=== PATIENT | female | born 2000 | race Caucasian/White ===

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

== ENCOUNTER 2021-08-31 16:01 | Outpatient (CLI) | payer OTHER, MEDICAID, SELFPAY ==
[2021-08-31 15:50] LABS: Protein, Urine (Random) 17.5 mg/dL (<11.9); Protein:Creat Ratio 72 mg/g CRE (0-200)
[2021-08-31 16:03] LABS: Amphetamine Urine VISTA NEGATIVE (<1000 ng/mL); Barbiturate Urine VISTA NEGATIVE (< 200 ng/mL); Benzodiazepine Urine VISTA NEGATIVE (< 200 ng/mL); Cocaine Urine VISTA NEGATIVE (< 300 ng/mL); Ecstacy Urine VISTA NEGATIVE (< 500 ng/mL); Methadone Urine VISTA NEGATIVE (< 300 ng/mL); PCP Urine VISTA NEGATIVE (< 25 ng/mL); THC Urine VISTA NEGATIVE (< 50 ng/mL); Vista UDS pH Range 6
[2021-09-03 09:08] LABS: Chlamydia By Nucleic Acid AMP Negative (Negative)
[2021-09-03 10:21] LABS: Gonococcus By Nucleic Acid AMP Negative (Negative)
== END 2021-08-31 23:59 | disposition home or self-care (01) ==
LOC: LABSPEC 16:03
PROVIDERS: PCP Family Medicine; Visit Provider Obstetrics & Gynecology
DX: O09.90 Supervision of high risk pregnancy, unspecified, unspecified trimester (principal); Z87.59 Personal history of other complications of pregnancy, childbirth and the puerperium
CPT/HCPCS: 80307; 82570; 84156; 87086; 87088; 87491; 87591

== ENCOUNTER → 2021-09-29 | Outpatient (CLI) | payer OTHER, MEDICAID, SELFPAY ==
[2021-09-29 11:30] LABS: Absolute Lymphocyte Count 1.61 X10^3/uL (0.83-4.51); Absolute Neutrophil Count 5.1 X10^3/uL (2.0-7.7); Basophil# 0.02 X10^3/uL; Basophil% 0.3 % (0-1); Eosinophil# 0.13 X10^3/uL; Eosinophils% 1.8 % (0-5); Hematocrit 37.5 % (37-47); Hemoglobin 12.6 g/dL (12.0-15.0); Lymphocyte # 1.61 X10^3/ul (0.83-4.51); Lymphocyte % 21.9 % (19-41); Mean Corp Hgb Conc 33.6 g/dL (32-36); Mean Corpuscular Hgb 27.4 pg (27.0-32.0); Mean Corpuscular Volume 81.5 fL (81-99); Mean Platelet Vol. 10.1 fl (6.2-12.0); Monocyte# 0.49 X10^3/uL; Monocyte% 6.7 % (0-10); NRBC Flagged by Analyzer 0 % (0-5); Neutrophil # 5.07 X10^3/uL (2.7-7.7); Neutrophil % 68.9 % (47-70); Platelet Count 265 K/mm3 (150-450); RBC Distribution Width CV 13.8 % (11.6-14.6); RBC Distribution Width SD 40.4 fl (35.1-43.9); White Blood Count 7.4 K/mm3 (4.4-11.0)
[2021-09-29 11:37] LABS: NATERA MAILED SPECIMEN
[2021-09-29 12:05] LABS: ALB/GLOB Ratio 0.8 RATIO (0.9-2.4); AST(SGOT) 10 U/L (15-37); Alanine Aminotransfer ALT/SGPT 16 U/L (13-56); Albumin, Serum 2.9 g/dL (3.2-5.0); Alkaline Phosphatase 78 U/L (45-117); Anion Gap 6 (5-15); BUN 7 mg/dL (7-18); BUN/Creat Ratio 11.8 RATIO (10-20); Calcium,Total 8.9 mg/dL (8.5-10.1); Chloride 107 mmol/L (98-107); Creatinine, Serum 0.59 mg/dL (0.55-1.02); EST Glomerular Filtration Rate 137 mL/min (>60); Est Glom Filt Rate - Afr Amer 166 mL/min (>60); Globulin 3.8 g/dL (2.2-4.2); Glucose 140 mg/dL (74-106); Glucose Challenge Gest 1H 50g 140 mg/dL (70-140); Potassium 3.6 mmol/L (3.5-5.1); Protein, Total 6.7 g/dL (6.4-8.2); Sodium Level 136 mmol/L (136-145)
[2021-09-29 12:37] LABS: HIV - WCH Non-Reactive (Nonreactive); Hepatitis B Surface Antigen Non-Reactive (Nonreactive); Hepatitis C Antibody Non-Reactive (Nonreactive); Rubella IgG Reactive (Nonreactive); Syphilis Antibodies Non-reactive
== END | disposition home or self-care (01) ==
LOC: PAVLAB 10:33
PROVIDERS: Obstetrics & Gynecology; PCP Physician Assistant; Referring Provider Obstetrics & Gynecology; Visit Provider Obstetrics & Gynecology
DX: Z34.81 Encounter for supervision of other normal pregnancy, first trimester (principal)
CPT/HCPCS: 36415; 80053; 82950; 85025; 86703; 86762; 86780; 86803; 86850; 86900; 86901; 87340

== ENCOUNTER → 2021-10-03 | Outpatient (CLI) | payer OTHER, MEDICAID, SELFPAY ==
[2021-10-03 10:43] LABS: Glucose GTT-Gestation. Fasting 85 mg/dL (<105)
[2021-10-03 11:33] LABS: Glucose GTT-Gestational 1 Hr 131 mg/dL (<190)
[2021-10-03 12:23] LABS: Glucose GTT-Gestational 2 Hr 148 mg/dL (<165)
[2021-10-03 13:31] LABS: Glucose GTT-Gestational 3 Hr 84 L (<145)
== END | disposition home or self-care (01) ==
LOC: LAB 09:49
PROVIDERS: PCP Physician Assistant; Visit Provider Obstetrics & Gynecology
DX: Z13.1 Encounter for screening for diabetes mellitus (principal)
CPT/HCPCS: 36415; 82951; 82952

== ENCOUNTER → 2022-01-16 | Outpatient (CLI) | payer OTHER, MEDICAID, SELFPAY ==
[2022-01-16 14:04] LABS: Absolute Lymphocyte Count 2.21 X10^3/uL (0.83-4.51); Absolute Neutrophil Count 7.3 X10^3/uL (2.0-7.7); Basophil# 0.03 X10^3/uL; Basophil% 0.3 % (0-1); Eosinophil# 0.16 X10^3/uL; Eosinophils% 1.5 % (0-5); Hematocrit 31.6 % (37-47); Hemoglobin 10.4 g/dL (12.0-15.0); Lymphocyte # 2.21 X10^3/ul (0.83-4.51); Lymphocyte % 21.1 % (19-41); Mean Corp Hgb Conc 32.9 g/dL (32-36); Mean Corpuscular Volume 85.2 fL (81-99); Mean Platelet Vol. 9.8 fl (6.2-12.0); Monocyte# 0.64 X10^3/uL; Monocyte% 6.1 % (0-10); NRBC Flagged by Analyzer 0 % (0-5); Neutrophil # 7.31 X10^3/uL (2.7-7.7); Neutrophil % 69.8 % (47-70); Platelet Count 249 K/mm3 (150-450); RBC Distribution Width CV 13.3 % (11.6-14.6); RBC Distribution Width SD 40.7 fl (35.1-43.9); Red Blood Count 3.71 M/mm3 (4.2-5.4); White Blood Count 10.5 K/mm3 (4.4-11.0)
[2022-01-16 14:27] LABS: Glucose Challenge Gest 1H 50g 117 mg/dL (70-140)
== END | disposition home or self-care (01) ==
PROVIDERS: PCP Physician Assistant; Referring Provider Nurse Practitioner Women's Health; Visit Provider Nurse Practitioner Women's Health
DX: Z34.90 Encounter for supervision of normal pregnancy, unspecified, unspecified trimester (principal)
CPT/HCPCS: 36415; 82950; 85025

== ENCOUNTER → 2022-03-23 | Outpatient (CLI) | payer OTHER, MEDICAID, SELFPAY ==
--- NOTE | 2022-03-23 13:29 | US_ITS ---
STUDY: SECOND AND THIRD TRIMESTER OBSTETRICAL ULTRASOUND - LIMITED REASON FOR EXAM: Female, 21 years old routine survey LMP: 07/10/21 PRIOR ULTRASOUND: None. TECHNIQUE: Transabdominal TECHNICAL QUALITY: Adequate. FINDINGS: There is a single intrauterine fetus. The fetus is in a cephalic presentation. There is demonstrated cardiac activity with a heart rate of between 122 and 171 bpm. There is a normal amniotic fluid volume. The largest amniotic fluid pocket measures 4.63 cm. The amniotic fluid index (LILIAN) is 10.32 cm. The placenta is fundal in location. There are Grade 1 placental changes. The cervix was not visualized BIOMETRY: BPD: 8.77 cm: 35 weeks, 3 days HC: 32.45 cm: 36 weeks, 5 days AC: 33.24 cm: 37 weeks, 1 days FL: 6.93 cm: 35 weeks, 4 days Age by LMP: 36 weeks, 4 days. BIRD by LMP: 04/16/2022. age by current US: 36 weeks, 4 days. BIRD by current US: 04/16/2022. Estimated weight: 2967 grams, +/- 445 grams, 53 percentile. US/OB Limited With Biometrics IMPRESSION: Single live intrauterine at 36 weeks, 4 days by current ultrasound with BIRD of 04/16/2022. Heart rate of measured between 122 and 171. No suspicious sonographic findings. Electronically Signed: Ezekiel Westfall MD at 15:12 EDT ,
[2022-03-23 15:37] LABS: Absolute Lymphocyte Count 2.04 X10^3/uL (0.83-4.51); Absolute Neutrophil Count 7.9 X10^3/uL (2.0-7.7); Basophil# 0.03 X10^3/uL; Basophil% 0.3 % (0-1); Eosinophil# 0.14 X10^3/uL; Eosinophils% 1.3 % (0-5); Hematocrit 31.4 % (37-47); Hemoglobin 9.8 g/dL (12.0-15.0); Lymphocyte # 2.04 X10^3/ul (0.83-4.51); Lymphocyte % 18.6 % (19-41); Mean Corp Hgb Conc 31.2 g/dL (32-36); Mean Corpuscular Volume 80.1 fL (81-99); Mean Platelet Vol. 10.2 fl (6.2-12.0); Monocyte# 0.82 X10^3/uL; Monocyte% 7.5 % (0-10); NRBC Flagged by Analyzer 0.2 % (0-5); Neutrophil # 7.85 X10^3/uL (2.7-7.7); Neutrophil % 71.7 % (47-70); Platelet Count 263 K/mm3 (150-450); RBC Distribution Width SD 43.1 fl (35.1-43.9); Red Blood Count 3.92 M/mm3 (4.2-5.4)
[2022-03-23 15:57] LABS: Protein, Urine (Random) 17.5 mg/dL (<11.9); Protein:Creat Ratio 98 mg/g CRE (0-200)
[2022-03-23 16:02] LABS: ALB/GLOB Ratio 0.6 RATIO (0.9-2.4); AST(SGOT) 16 U/L (15-37); Alanine Aminotransfer ALT/SGPT 18 U/L (13-56); Albumin, Serum 2.4 g/dL (3.2-5.0); Alkaline Phosphatase 137 U/L (45-117); Anion Gap 7 (5-15); BUN 11 mg/dL (7-18); BUN/Creat Ratio 15.9 RATIO (10-20); Calcium,Total 9.2 mg/dL (8.5-10.1); Chloride 109 mmol/L (98-107); Creatinine, Serum 0.69 mg/dL (0.55-1.02); EST Glomerular Filtration Rate 114 mL/min (>60); Est Glom Filt Rate - Afr Amer 138 mL/min (>60); Globulin 3.9 g/dL (2.2-4.2); Glucose 102 mg/dL (74-106); Potassium 3.8 mmol/L (3.5-5.1); Protein, Total 6.3 g/dL (6.4-8.2); Sodium Level 140 mmol/L (136-145)
== END | disposition home or self-care (01) ==
PROVIDERS: Registered Nurse; PCP Physician Assistant; Referring Provider Obstetrics & Gynecology; Visit Provider Obstetrics & Gynecology
DX: Z34.93 Encounter for supervision of normal pregnancy, unspecified, third trimester (principal); Z3A.36 36 weeks gestation of pregnancy
CPT/HCPCS: 36415; 76816; 80053; 82570; 84156; 85025; 87077; 87081; 87186

== ENCOUNTER 2022-03-27 09:39 | Inpatient (IN) | payer OTHER, MEDICAID, SELFPAY ==
[2022-03-27] VITALS (66 sets, daily range): BP systolic 86–147; BP diastolic 50–90; PULSE 63–130; TEMP 36–37.3; O2SAT 89–100; BMI 43.5
--- NOTE | 2022-03-27 09:53 | HP.PCM.OB_ITS ---
HPI - General General Date of Admission: 03/27/22 HPI Narrative CARIE GARDNER, is a 21 y/o @ 37 weeks 1 day who presents to L&D per Jaz Marcano for elevated blood pressures and visual changes. She was initially set up for IOL tomorrow for PIH. Her GBS is positive and cx is 2/60/-2 (per report from [employer]) She currently denies headache, abdominal pain, nausea, vomiting. Maternal Data Information BIRD Calculator Estimated Delivery Date Method Current WG Current Estimate 04/16/22 Ultrasound #1 37w 1d Other Estimates 04/05/22 LMP (Uncertain) 38w 5d PFSH PFSH Medical History Anxiety and depression Vaginal delivery Home Medications prenat.vits,shelia,xas-nioc-bfbcs 1 tab PO DAILY 08/16/21 [History Last Taken 03/25/22] ferrous sulfate 325 mg (65 mg iron) tablet 325 mg PO DAILY anemia 03/27/22 [History Last Taken 03/25/22] Allergy/AdvReac Type Severity Reaction Status Date / Time No Known Allergies Allergy Verified 03/27/22 08:58 Surgical History No significant past surgical history Social History adopted: No household members: significant other and children housing: house number of children: 1 current occupational status: employed and unemployed current occupation: [employer] pets and animals: Yes pets and animals: dog(s) Smoking Status: Never smoker second hand exposure: No alcohol intake: never substance use type: does not use seatbelt use: always do you feel safe at home: Yes History 2 Elective abortions Hx Para 1 Spontaneous abortions Hx # Term Pregnancies Ectopic pregnancies Hx # Pregnancies Multiple births # of living children 1 Past Pregnancies Del. Date Name GA/Weeks Outcome Route Bth Weight Gen Labor Lgth Anesthesia Del Locatn Provider FOB 12/17/20 Mathew Moon 38 live - full term 7# 8o z Male 12 hour epidural [facility] SM PJ Delivery Date: 12/17/20 Last Updated by: Jaz Marcano [employer], [employer]-C IOL for HTN Visit Details Expected Delivery Route/Plan Labor Preferences- CB/BF classes: no labor support person: MEIR labor intervention preferences: [] pain management options preferred: limited intervention, epidural ok cut cord/dad catch: yes : no PP control planned: discussed discussed possible routes of delivery and associated risks: [] special requests: [] Plans Covid status: unvaccinated Flu vaccine:unvaccinated Tdap vaccine: decline Rhogam: na LARC form signed: yes movement and labor precautions reviewed. Problem list reviewed and updated with the most current plan of care details and appropriate orders placed. Relevant counseling for the gestational age provided. Continue routine care and follow up unless otherwise noted in visit notes/problem list details OB Flowsheet Initial Weight: 226 lb Date -?-?-?-?-?-?-?-?-?-?-?-?- EGA Weight BP Urine Prot -?-?-?-?-?-?-?-?-?-?-?-?- Glucose FHR FuHt Pres Dilation -?-?-?-?-?-?-?-?-?-?-?-?- Effaced St Visit Note 09/29/21 -?-?-?-?-?-?-?-?-?--?-?-?- 11w 4d 226 lb (+0 oz) 138/86 -?-?-?-?-?-?-?-?-?-?-?-?- 155 -?-?-?-?-?-?-?-?-?-?-?-?- SM- no vb some c ramping 10/27/21 -?-?-?-?-?-?-?-?-?-?-?-?- 15w 4d 226 lb 2 oz (+2 oz) 130/78 Negative -?-?-?-?-?-?-?-?-?-?-?-?- Negative 140 -?-?-?-?-?-?-?-?-?-?-?-?- JV- some mild cr amping and carpal tunnel pain. No vaginal bleeding. anatomy ultrasound ordered. 11/24/21 -?-?-?-?-?-?-?-?-?-?-?-?- 19w 4d 228 lb 8 oz (+2 lb 8 oz) 126/86 Negative -?-?-?-?-?-?-?-?-?-?-?-?- Negative 145 -?-?-?-?-?-?-?-?-?-?-?-?- JV- no cramping or spotting needs additional views of ultrasound. + FM. 12/22/21 -?-?-?-?-?-?-?-?-?-?-?-?- 23w 4d 223 lb (-3 lb) 130/83 Negative -?-?-?-?-?-?-?-?-?-?-?-?- Negative 140 23 -?-?-?-?-?-?-?-?-?-?-?-?- SM- no vb lof go od fm no regular ctx echo for fu heart views due to incomplete anatomy 01/16/22 -?-?-?-?-?-?-?-?-?-?-?-?- 27w 1d 240 lb 4 oz (+14 lb 4 oz) 116/62 Negative -?-?-?-?-?-?-?-?-?-?-?-?- Negative 144 28 -?-?-?-?-?-?-?-?-?-?-?-?- MH-No VB, LOF. G ood fm. 28 wk labs, [facility]. Consider tdap next visit 02/01/22 -?-?-?-?-?-?-?-?-?-?-?-?- 29w 3d 239 lb (+13 lb) 128/76 Negative -?-?-?-?-?-?-?-?-?-?-?-?- Negative 145 30 -?-?-?-?-?-?-?-?-?-?-?-?- SM- no vb lof go od f irregular ctx 02/16/22 -?-?-?-?-?-?-?-?-?-?-?-?- 31w 4d 242 lb 4 oz (+16 lb 4 oz) 129/78 Negative -?-?-?-?-?-?-?-?-?-?-?-?- 100 g/dL 146 33 -?-?-?-?-?-?-?-?-?-?-?-?- JV- no lof, vagi nal bleeding, or dec fm. no complaints. declines tdap today. plans tog get next visit. info on flu shot given. 02/27/22 -?-?-?-?-?-?-?-?-?-?-?-?- 33w 1d 244 lb 4 oz (+18 lb 4 oz) 131/79 Negative -?-?-?-?-?-?-?-?-?-?-?-?- Negative 125 35 -?-?-?--?-?-?-?-?-?-?-?-?- SM- no vb lof go od fm no reuglar ctx 03/16/22 -?-?-?-?-?-?-?-?-?-?-?-?- 35w 4d 245 lb (+19 lb) 131/83 -?-?--?-?-?-?-?-?-?-?-?-?- 135 38 -?-?-?-?-?-?-?-?-?-?-?-?- SM- no vb lof go od fm no regular ctx. FH high ordered growth us 03/23/22 -?-?-?-?-?-?-?-?-?-?-?-?- 36w 4d 248 lb 8 oz (+22 lb 8 oz) 142/84 Negative -?-?-?-?-?-?-?-?-?-?-?-?- Negative 140 39 Cephalic -?-?-?-?-?-?-?-?-?-?-?-?- LC-GBS collected . elevated BP, getting PIH labs stat. will return for NST. NST on saturday with IOL at 37 weeks. d/w Dr. Romero who agrees with POC. 03/26/22 -?-?-?-?--?-?-?-?-?-?-?-?- 37w 0d 247 lb (+21 lb) 133/81 Negative -?-?-?-?-?-?-?-?-?-?-?-?- Negative 140 -?-?-?-?-?-?-?-?-?-?-?-?- MH-NST only reac tive. 03/27/22 -?-?-?-?-?-?-?-?-?-?-?-?- 37w 1d 246 lb 6 oz (+20 lb 6 oz) 140/90 Trace -?-?-?-?-?-?-?-?-?-?-?-?- Negative 141 Cephalic 2 -?-?-?-?-?-?-?-?-?-?-?-?- 60 -2 -had hea dache last night. Seeing sparkles off and on today. No reg CTX, VB, LOF. Good Fm. To WP for eval. ROS Constitutional Constitutional: Denies change in weight, fatigue, fever(s), headache(s), poor appetite or weakness Eyes Eyes: Denies blurry vision, change in vision, seeing flashes or spots in vision ENT HEENT: Denies dizziness, headache(s), loss taste/smell or sore throat Cardiovascular Cardiovascular: Denies chest pain, dizziness, dyspnea, irregular heart rhythm, leg edema, palpitations, rapid heart rate or vomiting Respiratory/Chest Respiratory/Chest: Denies chest tightness, cough, dyspnea or breast pain Gastrointestinal Gastrointestinal: Denies abdominal pain, anorexia, constipation, cramping, diarrhea, hemorrhoids, vomiting or weight changes Genitourinary Genitourinary: Denies dysuria, flank pain, genital lesions, genital pain, urinary frequency or urinary urgency Musculoskeletal Musculoskeletal: Denies back pain, difficulty walking, joint pain, limited range of motion, muscle cramps or numbness Integumentary Integumentary: Denies lesions or unusual bruising Neurologic Neurologic: Denies abnormal movements, abnormal speech, dizziness, numbness, sei zure-like activity or syncope Psychiatric Psychiatric: Denies anxiety, behavioral changes, change in appetite, change in libido, cognitive impairment, confusion, depression, difficulty concentrating, hallucinations or suicidal thoughts Endocrine Endocrinology: Denies excessive sweating, polydipsia or polyuria Hematologic/Lymphatic Hematologic/Lymphatic: Denies easy bleeding, easy bruising or lymphadenopathy Allergic/Immunologic Allergic/Immunologic: Denies itchy eyes, lip swelling, seasonal rhinorrhea, rhinitis, throat swelling, tongue swelling, eczemia, wheezing or asthma Vital Signs Vital Signs Vital Signs: 03/27/22 09:45 03/27/22 09:45 03/27/22 09:46 Temperature Temperature Source Temporal Pulse Rate 103 H Blood Pressure 138/77 H BP Systolic 138 BP Diastolic 77 Pulse Ox 03/27/22 09:46 03/27/22 09:45 Temperature 98.3 F Temperature Source Pulse Rate Blood Pressure BP Systolic BP Diastolic Pulse Ox 97 Physical Exam Const alert, oriented x3, no apparent distress and healthy appearing General Appearance: cooperative; Negative for anxious HEENT normocephalic Face and Sinus: normal facial exam Eyes EOMs intact bilaterally and no scleral icterus General Eye: normal appearance of both eyes Neck full ROM and supple Lymph Lymphatic: no lymphadenopathy noted Chest Chest: abnormal inspection of the chest Resp normal respiratory effort Effort and Inspection: able to speak in complete sentences Cardio regular rate GI soft to palpation and non-tender Inspection: gravid Palpation: soft; Negative for tender external exam normal Back/Spine no CVA tenderness Extremity normal to inspection, full ROM and no clubbing, cyanosis or edema General Extremity: Negative for calf tenderness or edema Skin Lesions: no lesions Rashes: no rashes Psych mental status grossly normal Labs Labs Labs: Blood Type O POSITIVE Antibody Screen NEGATIVE Hct 31.4 % (37-47) L Hgb 9.8 g/dL (12.0-15.0) L Obstetrics US Syphilis Total Ab Non-reactive Rubella IgG Antibody Reactive (Nonreactive) Hep Bs Antigen Non-Reactive (Nonreactive) Chlamydia DNA (LIONEL) Negative (Negative) Neisseria gonorrhoeae DNA (LIONEL) Negative (Negative) HIV 1&2 Antibody Non-Reactive (Nonreactive) Glucose 1 Hr 50 gm 117 mg/dL (70-140) Miscellaneous Test Assessment & Plan (1) Gestational hypertension: COMMENT: with signs of pre-e /severe features PLAN: Patient presents IOL, plan management for with cytote first, then pitocin/AROM. Pain management: plans epidural. GBS positive- will start pcn now to anticipate early Amniotomy due to pitocin shortage. Management of any complications: PIH - plan to check pih labs now including pr:cr ratio I have reviewed the PFSH and made any clinically relevant updates. (2) Uterine size-date discrepancy, third trimester: COMMENT: growth us, 03/23/22 nl growth US 53%, 2967gms (3) Anemia affecting : COMMENT: add Fe supplement daily (4) Abnormal glucose affecting : COMMENT: failed 1 hr gct normal 3 hr gtt (5) Obesity affecting : COMMENT: 1 tm gct. healthy weight gain encountered. (6) Short interval between pregnancies affecting , antepartum: COMMENT: Ghassan Carmona December 2020 (7) : QUALIFIERS: Weeks of gestation: 37 weeks Qualified Code(s): Z3A.37 - 37 weeks gestation of COMMENT: declined ntd and carrier screen.anatomy nl, repeat heart views in 2 wks, 01/30 nl echo, genetics LR girl! (8) Supervision of high risk , antepartum: COMMENT: PRR BIRD 04/16/22 girl PC: Mathew. BF:PJ (9) History of gestational hypertension: COMMENT: 1 . Get pre E labs with NOB labs (10) Anxiety and depression: COMMENT: tx in the past with medication and counseling; no meds; stable
--- NOTE | 2022-03-27 10:04 | NURSING ---
Patient declined rapid covid test.
[2022-03-27 10:25] LABS: Absolute Lymphocyte Count 1.91 X10^3/uL (0.83-4.51); Absolute Neutrophil Count 6.9 X10^3/uL (2.0-7.7); Basophil# 0.02 X10^3/uL; Basophil% 0.2 % (0-1); Eosinophil# 0.04 X10^3/uL; Eosinophils% 0.4 % (0-5); Hematocrit 32.8 % (37-47); Hemoglobin 10.5 g/dL (12.0-15.0); Lymphocyte # 1.91 X10^3/ul (0.83-4.51); Mean Corpuscular Hgb 25.5 pg (27.0-32.0); Mean Corpuscular Volume 79.8 fL (81-99); Mean Platelet Vol. 10.1 fl (6.2-12.0); Monocyte% 6.3 % (0-10); NRBC Flagged by Analyzer 0 % (0-5); Neutrophil # 6.94 X10^3/uL (2.7-7.7); Neutrophil % 72.5 % (47-70); Platelet Count 246 K/mm3 (150-450); RBC Distribution Width CV 14.9 % (11.6-14.6); RBC Distribution Width SD 42.9 fl (35.1-43.9); Red Blood Count 4.11 M/mm3 (4.2-5.4); White Blood Count 9.6 K/mm3 (4.4-11.0)
[2022-03-27] MEDS: miSOPROStol 50 MCG TABLET PO (10:34)
[2022-03-27 10:43] LABS: ALB/GLOB Ratio 0.6 RATIO (0.9-2.4); AST(SGOT) 16 U/L (15-37); Alanine Aminotransfer ALT/SGPT 19 U/L (13-56); Albumin, Serum 2.6 g/dL (3.2-5.0); Alkaline Phosphatase 136 U/L (45-117); Anion Gap 7 (5-15); BUN 6 mg/dL (7-18); BUN/Creat Ratio 11.2 RATIO (10-20); Calcium,Total 9.2 mg/dL (8.5-10.1); Chloride 108 mmol/L (98-107); Creatinine, Serum 0.54 mg/dL (0.55-1.02); EST Glomerular Filtration Rate 153 mL/min (>60); Est Glom Filt Rate - Afr Amer 185 mL/min (>60); Estimated Creatinine Clearance 137.47 ml/min; Glucose 83 mg/dL (74-106); Potassium 3.8 mmol/L (3.5-5.1); Protein, Total 6.6 g/dL (6.4-8.2); Sodium Level 139 mmol/L (136-145); Uric Acid 3.7 mg/dL (2.6-6.0)
[2022-03-27 11:29] LABS: Protein, Urine (Random) 16.6 mg/dL (<11.9); Protein:Creat Ratio 194 mg/g CRE (0-200)
[2022-03-27] MEDS: Ondansetron 4 MG/2 ML Vial IV (12:22)
[2022-03-27] MEDS: Lactated Ringers 1,000 ML 50 ML IV (15:30)
[2022-03-27] MEDS: LACTATED RINGERS 500 ML 999 ML IV ×2 (16:15→17:13)
[2022-03-27] MEDS: Penicillin G 3,000,000 Units 50 ML 100 UNITS IV (16:47)
[2022-03-27] MEDS: fentaNYL-bupivacaine (epidural) 100 ML BAG EPIDURAL (17:03)
[2022-03-27] MEDS: miSOPROStol 200 MCG Tablet 1000 MCG RC (17:48)
[2022-03-27] MEDS: Oxytocin 10 UNITS/ML Vial IM (17:50)
--- NOTE | 2022-03-27 18:00 | OP.PCM_ITS ---
Assessment & Plan (1) Gestational hypertension: COMMENT: with signs of pre-e /severe features (2) Uterine size-date discrepancy, third trimester: COMMENT: growth us, 03/23/22 nl growth US 53%, 2967gms (3) Anemia affecting : COMMENT: add Fe supplement daily (4) Abnormal glucose affecting : COMMENT: failed 1 hr gct normal 3 hr gtt (5) Obesity affecting : COMMENT: 1 tm gct. healthy weight gain encountered. (6) Short interval between pregnancies affecting , antepartum: COMMENT: Ghassan Carmona December 2020 (7) : QUALIFIERS: Weeks of gestation: 37 weeks Qualified Code(s): Z3A.37 - 37 weeks gestation of COMMENT: declined ntd and carrier screen.anatomy nl, repeat heart views in 2 wks, 01/30 nl echo, genetics LR girl! (8) Supervision of high risk , antepartum: COMMENT: PRR BIRD 04/16/22 girl PC: Mathew. BF:PJ (9) History of gestational hypertension: COMMENT: 1 . Get pre E labs with NOB labs (10) Anxiety and depression: COMMENT: tx in the past with medication and counseling; no meds; stable Maternal Data Information BIRD Calculator Estimated Delivery Date Method Current WG Current Estimate 04/16/22 Ultrasound #1 37w 1d Other Estimates 04/05/22 LMP (Uncertain) 38w 5d Vaginal Delivery Maternal Presentation Maternal Presentation: Medically Indicated Induction Type of Induction: Cervidil Operative Information Date of Procedure: 03/27/22 Pre-Operative Diagnosis: 37 weeks 1 day, Pre-eclampsia with severe features Post-Operative Diagnosis: 37 weeks 1 day, Pre-eclampsia with severe features Anesthesiologist: Amna Rojas Estimated Blood Loss: 200cc Findings Description of Procedure: Patient began pushing and delivered the head in the [SHAWN] presentation. The head was delivered atraumatically [and a loose nuchal cord ?1 was identified and easily reduced over the 's head]. The anterior and posterior shoulders delivered without complication followed by the rest of the infant and the was placed on the maternal abdomen. Delayed cord clamping was employed for approximately 60 seconds. Cord was clamped and cut and gentle traction was applied to the cord and the placenta delivered spontaneously immediately following it was noted to be intact with three-vessel cord. The perineum and vagina were inspected and [noted to have no laceration]. EBL was [100 cc]. Patient and infant tolerated delivery well. Presentation: Vertex Amniotic Membrane Rupture Type: Artificial Time of Membrane Rupture: 12:30 pm Amniotic Fluid Description: Clear Placental Delivery Description: Spontaneous Placenta Disposition: [facility] Cord Vessel Description: 3 Vessels Cord Entanglement: None A Gender: Female (1 minute): 8 (5 minute): 9 Delayed Cord Clamping: Yes Post Vaginal Delivery Medications Given After Delivery: - (IM pitocin and rectal cytotec ) Episiotomy Description: None Laceration: None Complication Complications: None Multi Select Codes Urinary/Genital Urinary/Genital CPT Codes: 00637 Vaginal Delivery [facility]
--- NOTE | 2022-03-27 18:04 | DCINST_ITS ---
Discharge Instructions Diet Discharge Diet: No restrictions Activity Discharge Activity: Return to Normal Activity, May Not Drive (while taking narcotic pain medications.) and May Shower May resume sexual activity in: 4-6 weeks Dressing / Incision Call your doctor if your incision/area has: Continuous Slow Oozing, Sudden Increased Bleeding, Increased Pain/ Swelling, Increased Redness and Foul Smelling Discharge Follow Up Care Please Follow Up With: Dianne Benavidez, DO When: Call [phone] to make an appointment with your doctor in 6 weeks. If you had elevated blood pressure or 4th degree laceration, you will need to be seen in 2 weeks. Test Results: Test results from this visit will be discussed in further detail at your follow- up appointment, if applicable. Discharge Plan Admission Admit Date/Time: 03/27/22 09:39 Attending Provider: Dianne Benavidez Primary Care Provider: Bre Maldonado Discharge Orders/Prescriptions Prescriptions: No Action prenat.vits,shelia,[id number] Tablet 1 tab PO DAILY ferrous sulfate 325 mg (65 mg iron) Tablet 325 mg PO DAILY Referrals / Follow Up: Bre Maldonado PA [Primary Care Provider] -
[2022-03-27] MEDS: Ibuprofen 600 MG Tablet PO (22:09)
[2022-03-28 00:10] VITALS: BP 134/63; PULSE 98; RESP 16; TEMP 37.3
[2022-03-28] MEDS: Acetaminophen 500 MG Tablet 1000 MG PO (00:28)
[2022-03-28 04:00] VITALS: BP 111/78; PULSE 94; RESP 16; TEMP 36.6
[2022-03-28 08:00] VITALS: BP 125/81; PULSE 84; RESP 18; TEMP 36.5; O2SAT 98
[2022-03-28 11:33] VITALS: BP 118/69; PULSE 83; RESP 18; TEMP 36.3; O2SAT 97
--- NOTE | 2022-03-28 12:56 | PCM.PN.OB ---
Subjective Subjective Patient doing well without complaints. Tolerating PO. Ambulating and voiding without difficulty. Feeding well. Denies chest pain, shortness of breath, calf pain/swelling, fevers, chills, lightheadedness, headaches, blurred vision/visual changes Objective Data Objective Data Vital Signs: Vital Signs Temp Pulse Resp BP Pulse Ox O2 Del Method 97.4 F L 83 18 118/69 97 Room Air 03/28/22 11:33 03/28/22 11:33 03/28/22 11:33 03/28/22 11:33 03/28/22 11:33 03/28/22 11:33 Oxygen Delivery Method Room Air Weight: 246 lb Body Mass Index (BMI) 43.5 Intake & Output: Intake and Output for Last 24 Hours 03/26/22 03/27/22 03/28/22 23:59 23:59 23:59 Intake Total 1655.00 / 1655.00 Output Total 1100 / 1100 Balance 555.00 / 555.00 Lab / Micro Data Attestation: I reviewed the patient's lab results. Result Diagrams: 03/27/22 10:10 03/27/22 10:10 ROS Constitutional Constitutional: Denies change in weight, fatigue, fever(s), headache(s), poor appetite or weakness Eyes Eyes: Denies blurry vision, change in vision, seeing flashes or spots in vision ENT HEENT: Denies dizziness, headache(s), loss taste/smell or sore throat Cardiovascular Cardiovascular: Denies chest pain, dizziness, dyspnea, irregular heart rhythm, leg edema, palpitations, rapid heart rate or vomiting Respiratory/Chest Respiratory/Chest: Denies chest tightness, cough, dyspnea or breast pain Gastrointestinal Gastrointestinal: Denies abdominal pain, anorexia, constipation, cramping, diarrhea, hemorrhoids, vomiting or weight changes Genitourinary Genitourinary: Denies dysuria, flank pain, genital lesions, genital pain, urinary frequency or urinary urgency Musculoskeletal Musculoskeletal: Denies back pain, difficulty walking, joint pain, limited range of motion, muscle cramps or numbness Integumentary Integumentary: Denies lesions or unusual bruising Neurologic Neurologic: Denies abnormal movements, abnormal speech, dizziness, numbness, seizure-like activity or syncope Psychiatric Psychiatric: Denies anxiety, behavioral changes, change in appetite, change in libido, cognitive impairment, confusion, depression, difficulty concentrating, hallucinations or suicidal thoughts Endocrine Endocrinology: Denies excessive sweating, polydipsia or polyuria Hematologic/Lymphatic Hematologic/Lymphatic: Denies easy bleeding, easy bruising or lymphadenopathy Allergic/Immunologic Allergic/Immunologic: Denies itchy eyes, lip swelling, seasonal rhinorrhea, rhinitis, throat swelling, tongue swelling, eczemia, wheezing or asthma Physical Exam Const alert, oriented x3, no apparent distress and healthy appearing General Appearance: cooperative; Negative for anxious HEENT normocephalic Face and Sinus: normal facial exam Eyes EOMs intact bilaterally and no scleral icterus General Eye: normal appearance of both eyes Neck full ROM and supple Lymph Lymphatic: no lymphadenopathy noted Chest Chest: abnormal inspection of the chest Resp normal respiratory effort and normal air movement Effort and Inspection: able to speak in complete sentences and symmetric chest movement Cardio regular rate GI soft to palpation and non-tender Inspection: gravid Palpation: soft; Negative for tender external exam normal Narrative: FF 1below U Back/Spine no CVA tenderness Extremity normal to inspection, full ROM and no clubbing, cyanosis or edema General Extremity: Negative for calf tenderness or edema Skin Lesions: no lesions Rashes: no rashes Neuro Motor Exam: strength 5/5 throughout and muscle tone normal throughout Deep Tendon Reflexes: Rt Patellar (L4): 2+ and Lt Patellar (L4): 2+ Psych mental status grossly normal Appearance: grossly normal Assessment & Plan (1) Gestational hypertension: COMMENT: with signs of pre-e /severe features PLAN: normal BP stable, no s/sx of continue PEC (2) Anemia affecting : COMMENT: add Fe supplement daily (3) Short interval between pregnancies affecting , antepartum: COMMENT: Ghassan Carmona December 2020 (4) Vaginal delivery: COMMENT: IOL severe PEC, girl HAM Quintanilla PLAN: Plan s/p PPD # 1 1. routine post delivery care 2. breast feeding- support given 3. rh positive 4. rubella immune 5. d/c home today 6. f/u in office for BP check
[2022-03-28] MEDS: Ibuprofen 600 MG Tablet PO (13:35)
--- NOTE | 2022-03-28 16:00 | CASEMGMT ---
Social Work Assessment Labor and Delivery Unit Date of Referral: 03/28/2022 Time of Referral: 07:57 Referred By: Dr. Shelby Benavidez Date of Intervention: 03/28/2022 Time of Intervention: 16:00 Reason for Referral: Mother of baby (MOB) with history of anxiety and depression History obtained from: MOB, Father of baby (FOB), medical chart, nursing staff. Household composition: MOB, FOB (Trace Sarai PJ), Mathew Ferrell (: 12/07/2020), and now this , Socorro Moon (: 03/27/2022) have a private home together. Patient's parent/guardian status: MOB and FOB have been together for 2 years. FOB present during labor and delivery and now present in room during assessment. FOB appears support and MOB confirms that FOB is supportive. MOB reports that was planned. MOB and FOB have no other children other then Mathew and Socorro, which both share maternity and paternity. Medical History: MOB with history and now is with this infant. MOB induced on 03/27/2022 due to elevated blood pressure. MOB with appropriate care that started at 11 weeks. Infant born on 03/27/2021 with apgars of 8 and 9 at 1min and 5min. to follow with Dr. Bre Maldonado in the community. Educational Status: MOB graduated from [employer]. MOB denies issues or concerns with comprehension or understanding. Financial Status: MOB/FOB deny financial concerns. Supplies: MOB reports to have needed supplies including a crib and car seat. 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 Transportation: MOB denies transportation concerns. Programs/Agencies Involved: MOB denies any current community agency involvement. MOB reports to have used WIC for Mathew, but not that much. MOB reports to have medical insurance through [employer]. Children Services/Legal Issues:MOB denies history of children services or legal issues/concerns. Mental Health History: MOB confirms a history of anxiety and depression. MOB reports to have been on Zoloft in the past. MOB reports to no longer be on zoloft and to not remember the name of medication that patient is current prescribed to manage mental health. MOB reports history of counseling services but no active counseling. MOB reports some depression after first . MOB denies any thoughts of suicidal thoughts, plans, intents. MOB reports to have been able to work through depression through talking with support system. This social media assistant able to engage in conversation with MOB about signs and symptoms of depression/anxiety. Substance Use History: MOB/FOB deny substance abuse/use. Maternal and Infant Drug Screens: MOB with negative tox screen on 08/31/2021. No other tox screens completed. PHQ9: Did not trigger. Family/Social Stressors: MOB denies family/social stressors outside adjusting to a family of four. Support Systems: MOB reports to have support from MOB's mother and FOB along with multiple other family members. Resources: This social media assistant provided patient with resources on depression/anxiety, local counseling services, crisis hotline, shaken baby syndrome, and safe sleeping. MOB responding appropriately to safe sleeping and shaken baby prompts. ASSESSMENT: This social media assistant met with MOB, FOB and MOB's mother in room. MOB's mother holding . This social media assistant introduced self and social media assistant role. MOB agreeable to speak with this social media assistant and provided verbal permission for this social media assistant to speak openly with patient family present. MOB and FOB both report to have a connection with infant and to be excited about returning to home. MOB and plan to be discharged later today. MOB denies concerns on returning to home. MOB reports plan to breastfeed and reports that is going well. MOB with positive and engaged affect during assessment. Active support and listening provided throughout assessment. PLAN: MOB and to discharge to home with family No other services requested or indicated. Dary TOLENTINO, FAIZA
[2022-03-28 16:43] VITALS: BP 121/78; PULSE 89; RESP 18; TEMP 36.3
== END 2022-03-28 20:00 | disposition home or self-care (01) | DRG 807 ==
LOC: WPOUT 09:39 → WP 09:39
PROVIDERS: Admitting Provider Obstetrics & Gynecology; PCP Physician Assistant; Referring Provider Obstetrics & Gynecology; Visit Provider Obstetrics & Gynecology
DX: O14.14 Severe pre-eclampsia complicating childbirth (principal); Z37.0 Single live birth; E66.9 Obesity, unspecified; F41.9 Anxiety disorder, unspecified; O99.344 Other mental disorders complicating childbirth; F32.A Depression, unspecified; O69.81X0 Labor and delivery complicated by cord around neck, without compression, not applicable or unspecified; O26.843 Uterine size-date discrepancy, third trimester; Z3A.37 37 weeks gestation of pregnancy; O99.824 Streptococcus B carrier state complicating childbirth; O99.214 Obesity complicating childbirth
CPT/HCPCS: 59025; 59050; 80053; 82570; 84156; 84550; 85025; 86850; 86900; 86901; 99218; J7120; G0378; J2405

== ENCOUNTER → 2023-07-17 | Outpatient (CLI) | payer OTHER, MEDICAID, SELFPAY ==
[2023-07-17 17:02] LABS: Protein, Urine (Random) 13.7 mg/dL (<11.9); Protein:Creat Ratio 91 mg/g CRE (0-200)
--- OUTSIDE RECORDS SUMMARY | 2023-07-17 19:24 | XMS RPT_ITS | CCD ---
Author Name Unknown Address [address] [place] [address] Organization [facility] Care Team Providers Care Dog Day Care Attendant Name Role Phone DENVER RESTREPO DO Attending Unavailable DENVER RESTREPO DO Primary Care Unavailable DENVER RESTREPO DO Admitting Unavailable JASON WALKER Referring Unavailable AARON, JASON Consulting Unavailable PROVIDER, UNKNOWN Consulting Unavailable ALAB OGDEN Attending Unavailable ALBA OGDEN Primary Care Unavailable ALBA OGDEN Admitting Unavailable AARON, JASON Consulting Unavailable PROVIDER, UNKNOWN Consulting Unavailable Problems Problem Classification Problem Date Documented Da te Episodic/Chronic Other upper respiratory infections (2 sources) Acute pharyngitis, unspecified; Translations: [Acute pharyngitis, unspecified] Onset: 05-12-2020 Episodic Unclassified (1 source) COVID-19; Translations: [COVID-19] Onset: 05-12-2020 Results Test Name Value Interpretation Reference Range Facil ity Encounters Encounter Date Encounter Type Care Provider Facility Start: 07-01-2020 End: 07-02-2020 Emergency department patient visit DENVER HOLCOMB [facility] Start: 05-12-2020 End: 05-12-2020 Patient encounter procedure ALBA OGDEN [facility] Payers Date Payer Category Payer Unknown [id number] 2001 Unknown [id number] Unknown [id number] Summary Purpose Family History No Family History Records FoundNo Family History Records FoundNo Family History Records Found Advance Directives No Advanced Directives Records FoundNo Advanced Directives Records FoundNo Advanced Directives Records Found Additional Source Comments INFORMATION SOURCE (unrecogn ized section and content) DATE CREATED AUTHOR AUTHOR'S ORGANIZ ATION 07/08/2020 [facility] DATE CREATED AUTHOR AUTHOR'S ORGANIZ ATION 01/31/2022 [facility] FOR RECORDS PERTAINING TO PATIENTS WHO ARE OR HAVE BEEN ENROLLED IN A CHEMICAL DEPENDENCY/SUBSTANCEABUSE PROGRAM, SOME INFORMATION MAY BE OMITTED. This clinical summary was aggregated from multiple sources. Caution should be exercised in using it in the provision of clinical care. This summary normalizes information from multiple sources, and as a consequence, information in this document may materially change the coding, format and clinical context of patient data. In addition, data may be omitted in some cases. CLINICAL DECISIONS SHOULD BE BASED ON THE PRIMARY CLINICAL RECORDS. [facility] [employer] provides no warranty or guarantee of the accuracy or completeness of information in this document.
[2023-07-20 07:09] LABS: Chlamydia By Nucleic Acid AMP Negative (Negative); Gonococcus By Nucleic Acid AMP Negative (Negative)
[2023-07-27 18:16] LABS: HPV Reflexed? NOT INDICATED
== END | disposition home or self-care (01) ==
LOC: LABSPEC 16:20
PROVIDERS: PCP Physician Assistant; Referring Provider Obstetrics & Gynecology; Visit Provider Obstetrics & Gynecology
DX: O09.299 Supervision of pregnancy with other poor reproductive or obstetric history, unspecified trimester (principal); Z12.4 Encounter for screening for malignant neoplasm of cervix; Z3A.00 Weeks of gestation of pregnancy not specified
CPT/HCPCS: 82570; 84156; 87077; 87086; 87088; 87186; 87491; 87591; 88175; G0145

== ENCOUNTER → 2023-07-31 | Outpatient (CLI) | payer OTHER, SELFPAY ==
[2023-07-31 13:19] LABS: Absolute Lymphocyte Count 2.05 X10^3/uL (0.83-4.51); Absolute Neutrophil Count 4.9 X10^3/uL (2.0-7.7); Basophil# 0.03 X10^3/uL; Basophil% 0.4 % (0-1); Eosinophil# 0.07 X10^3/uL; Eosinophils% 0.9 % (0-5); Hematocrit 39.6 % (37-47); Hemoglobin 13.4 g/dL (12.0-15.0); Lymphocyte # 2.05 X10^3/ul (0.83-4.51); Lymphocyte % 27.3 % (19-41); Mean Corp Hgb Conc 33.8 g/dL (32-36); Mean Corpuscular Hgb 28.5 pg (27.0-32.0); Mean Corpuscular Volume 84.3 fL (81-99); Mean Platelet Vol. 10.4 fl (6.2-12.0); Monocyte# 0.42 X10^3/uL; Monocyte% 5.6 % (0-10); NRBC Flagged by Analyzer 0 % (0-5); Neutrophil # 4.91 X10^3/uL (2.7-7.7); Neutrophil % 65.5 % (47-70); Platelet Count 260 K/mm3 (150-450); RBC Distribution Width SD 39.7 fl (35.1-43.9); White Blood Count 7.5 K/mm3 (4.4-11.0)
[2023-07-31 13:51] LABS: AST(SGOT) 12 U/L (15-37); Alanine Aminotransfer ALT/SGPT 18 U/L (13-56); Albumin, Serum 3.3 g/dL (3.2-5.0); Alkaline Phosphatase 69 U/L (45-117); Anion Gap 8 (5-15); BUN 9 mg/dL (7-18); BUN/Creat Ratio 16.3 RATIO (10-20); Chloride 104 mmol/L (98-107); Creatinine, Serum 0.55 mg/dL (0.55-1.02); EST Glomerular Filtration Rate 146 mL/min (>60); Est Glom Filt Rate - Afr Amer 177 mL/min (>60); Globulin 3.4 g/dL (2.2-4.2); Glucose 98 mg/dL (74-106); Potassium 3.7 mmol/L (3.5-5.1); Protein, Total 6.7 g/dL (6.4-8.2); Sodium Level 138 mmol/L (136-145)
[2023-07-31 14:29] LABS: HIV - WCH Non-Reactive (Nonreactive); Hepatitis B Surface Antigen Non-Reactive (Nonreactive); Hepatitis C Antibody Non-Reactive (Nonreactive); Rubella IgG Reactive (Nonreactive); Syphilis Antibodies Non-reactive
== END | disposition home or self-care (01) ==
LOC: LAB 12:18
PROVIDERS: PCP Physician Assistant; Referring Provider Obstetrics & Gynecology; Visit Provider Obstetrics & Gynecology
DX: O09.90 Supervision of high risk pregnancy, unspecified, unspecified trimester (principal); Z3A.00 Weeks of gestation of pregnancy not specified
CPT/HCPCS: 36415; 80053; 85025; 86703; 86762; 86780; 86803; 86850; 86900; 86901; 87340

== ENCOUNTER → 2023-11-05 | Outpatient (CLI) | payer OTHER, SELFPAY ==
--- NOTE | 2023-11-05 15:25 | US_ITS ---
STUDY: SECOND AND THIRD TRIMESTER OBSTETRICAL ULTRASOUND - LIMITED REASON FOR EXAM: Female, 23 years old growth LMP: PRIOR ULTRASOUND: None. TECHNIQUE: Transabdominal TECHNICAL QUALITY: Adequate. FINDINGS: There is a single intrauterine fetus. The fetus is in a variable presentation. There is demonstrated cardiac activity with a heart rate of 144 bpm. There is a normal amniotic fluid volume. The largest amniotic fluid pocket measures 5.2 cm. The amniotic fluid index (LILIAN) is 8.4 cm. The placenta is posterior and not low-lying There are Grade 1 placental changes. The cervix measures 3.4 cm in length. BIOMETRY: BPD: 5.69 cm: 23 weeks, 3 days HC: 22.16 cm : 24 weeks, 1 days AC: 21.75 cm: 26 weeks, 2 days FL: 4.46 cm: 24 weeks, 5 days Age by LMP: 24 weeks, 6 days. BIRD by LMP: February 19, 2024. age by current US: 24 weeks, 4 days. BIRD by current US: February 20, 2023. Estimated weight: 800 grams, +/- 12 grams, 62 percentile. Incidental note made on the limited images of the brain is asymmetric appearance to the cerebral hemispheres bilaterally. This could be due to technical artifact however follow-up is recommended to exclude possibility of anomaly... US/OB Limited With Biometrics IMPRESSION: Viable intrauterine gestation approximately 25 weeks gestational age Question developmental abnormality of the brain versus technical artifact. Recommend follow-up studies with enterprise software engineer Electronically Signed: Dax Chaves MD at 17:05 EDT ,
== END | disposition home or self-care (01) ==
LOC: US 15:24
PROVIDERS: PCP Physician Assistant; Referring Provider Advanced Practice Midwife; Visit Provider Advanced Practice Midwife
DX: O99.210 Obesity complicating pregnancy, unspecified trimester (principal); Z3A.00 Weeks of gestation of pregnancy not specified
CPT/HCPCS: 76816

== ENCOUNTER → 2023-11-11 | Outpatient (CLI) | payer OTHER, SELFPAY ==
[2023-11-11 12:23] LABS: Glucose Challenge Gest 1H 50g 114 mg/dL (70-140)
[2023-11-11 12:24] LABS: Absolute Lymphocyte Count 2.04 X10^3/uL (0.83-4.51); Absolute Neutrophil Count 6.9 X10^3/uL (2.0-7.7); Basophil# 0.03 X10^3/uL; Basophil% 0.3 % (0-1); Eosinophil# 0.07 X10^3/uL; Eosinophils% 0.7 % (0-5); Hematocrit 34.7 % (37-47); Hemoglobin 11.7 g/dL (12.0-15.0); Lymphocyte # 2.04 X10^3/ul (0.83-4.51); Lymphocyte % 21.1 % (19-41); Mean Corp Hgb Conc 33.7 g/dL (32-36); Mean Corpuscular Hgb 29.3 pg (27.0-32.0); Monocyte# 0.59 X10^3/uL; Monocyte% 6.1 % (0-10); NRBC Flagged by Analyzer 0 % (0-5); Neutrophil # 6.86 X10^3/uL (2.7-7.7); Neutrophil % 71.2 % (47-70); Platelet Count 242 K/mm3 (150-450); RBC Distribution Width CV 12.8 % (11.6-14.6); RBC Distribution Width SD 40.2 fl (35.1-43.9); Red Blood Count 3.99 M/mm3 (4.2-5.4); White Blood Count 9.7 K/mm3 (4.4-11.0)
[2023-11-11 13:00] LABS: HIV - WCH Non-Reactive (Nonreactive); Syphilis Antibodies Non-reactive
== END | disposition home or self-care (01) ==
LOC: LAB 11:06
PROVIDERS: PCP Physician Assistant; Referring Provider Nurse Practitioner Women's Health; Visit Provider Nurse Practitioner Women's Health
DX: O09.90 Supervision of high risk pregnancy, unspecified, unspecified trimester (principal); Z13.1 Encounter for screening for diabetes mellitus; Z3A.00 Weeks of gestation of pregnancy not specified
CPT/HCPCS: 36415; 82950; 85025; 86703; 86780

== ENCOUNTER → 2023-12-20 | Outpatient (CLI) | payer OTHER, SELFPAY ==
--- NOTE | 2023-12-20 13:20 | US_ITS ---
STUDY: SECOND AND THIRD TRIMESTER OBSTETRICAL ULTRASOUND - LIMITED REASON FOR EXAM: Female, 23 years old growth Q4wks begin 12/20/23 -- OBESITY LMP: May 15, 2023. PRIOR ULTRASOUND: Comparison is made with prior study November 05, 2023. TECHNIQUE: Transabdominal TECHNICAL QUALITY: Adequate. FINDINGS: There is a single intrauterine fetus. The fetus is in a cephalic presentation. There is demonstrated cardiac activity with a heart rate of 137 bpm. There is a normal amniotic fluid volume. The largest amniotic fluid pocket measures 6.7 cm x 6.4 cm. The amniotic fluid index (LILIAN) is 16.6 cm. The placenta is posterior in location and is not low lying. There are Grade 0 placental changes. The cervix measures 3.7 cm in length. BIOMETRY: BPD: 7.64 cm: 30 weeks, 4 days HC: 28.37 cm: 31 weeks, 1 days AC: 27.74 cm: 31 weeks, 6 days FL: 6.05 cm: 31 weeks, 3 days Age by LMP: 31 weeks, 2 days. BIRD by LMP: February 19, 2024. age by prior US: 31 weeks, 0 days. BIRD by prior US: February 21, 2020. age by current US: 31 weeks, 0 days. BIRD by current US: February 21, 2024. Estimated weight: 1800 grams, +/- 270 grams, 49 percentile. US/OB Limited With Biometrics IMPRESSION: Single live intrauterine gestation with a mean gestational age of 31 weeks. The measurements obtained today fall within normal expected range. Electronically Signed: Haroon Pitts MD at 14:50 EDT ,
== END | disposition home or self-care (01) ==
PROVIDERS: PCP Physician Assistant; Referring Provider Advanced Practice Midwife; Visit Provider Advanced Practice Midwife
DX: O99.210 Obesity complicating pregnancy, unspecified trimester (principal); O09.92 Supervision of high risk pregnancy, unspecified, second trimester; Z3A.00 Weeks of gestation of pregnancy not specified
CPT/HCPCS: 76816

== ENCOUNTER → 2023-12-25 | Outpatient (CLI) | payer OTHER, SELFPAY ==
[2023-12-25 17:04] LABS: Absolute Lymphocyte Count 2.24 X10^3/uL (0.83-4.51); Absolute Neutrophil Count 8.3 X10^3/uL (2.0-7.7); Basophil# 0.02 X10^3/uL; Basophil% 0.2 % (0-1); Eosinophil# 0.07 X10^3/uL; Eosinophils% 0.6 % (0-5); Hematocrit 34.6 % (37-47); Hemoglobin 11.6 g/dL (12.0-15.0); Lymphocyte # 2.24 X10^3/ul (0.83-4.51); Lymphocyte % 19.6 % (19-41); Mean Corp Hgb Conc 33.5 g/dL (32-36); Mean Corpuscular Hgb 27.9 pg (27.0-32.0); Mean Corpuscular Volume 83.2 fL (81-99); Mean Platelet Vol. 10.1 fl (6.2-12.0); Monocyte# 0.71 X10^3/uL; Monocyte% 6.2 % (0-10); NRBC Flagged by Analyzer 0 % (0-5); Neutrophil # 8.29 X10^3/uL (2.7-7.7); Neutrophil % 72.6 % (47-70); Platelet Count 259 K/mm3 (150-450); RBC Distribution Width CV 12.5 % (11.6-14.6); RBC Distribution Width SD 37.7 fl (35.1-43.9); Red Blood Count 4.16 M/mm3 (4.2-5.4); White Blood Count 11.4 K/mm3 (4.4-11.0)
[2023-12-25 17:26] LABS: ALB/GLOB Ratio 0.7 RATIO (0.9-2.4); AST(SGOT) 15 U/L (15-37); Alanine Aminotransfer ALT/SGPT 17 U/L (13-56); Albumin, Serum 2.7 g/dL (3.2-5.0); Alkaline Phosphatase 104 U/L (45-117); Anion Gap 8 (5-15); BUN 9 mg/dL (7-18); BUN/Creat Ratio 17.9 RATIO (10-20); Chloride 107 mmol/L (98-107); EST Glomerular Filtration Rate 162 mL/min (>60); Est Glom Filt Rate - Afr Amer 196 mL/min (>60); Globulin 3.9 g/dL (2.2-4.2); Glucose 83 mg/dL (74-106); Potassium 3.6 mmol/L (3.5-5.1); Protein, Total 6.6 g/dL (6.4-8.2); Sodium Level 138 mmol/L (136-145)
== END | disposition home or self-care (01) ==
PROVIDERS: PCP Physician Assistant; Referring Provider Nurse Practitioner Women's Health; Visit Provider Nurse Practitioner Women's Health
DX: O09.299 Supervision of pregnancy with other poor reproductive or obstetric history, unspecified trimester (principal); Z3A.00 Weeks of gestation of pregnancy not specified
CPT/HCPCS: 80053; 85025

== ENCOUNTER → 2024-01-07 | Outpatient (CLI) | payer OTHER, SELFPAY ==
[2024-01-07 12:25] LABS: Basophil# 0.02 X10^3/uL; Basophil% 0.2 % (0-1); Eosinophil# 0.04 X10^3/uL; Eosinophils% 0.4 % (0-5); Hematocrit 34.6 % (37-47); Hemoglobin 11.3 g/dL (12.0-15.0); Lymphocyte % 21.3 % (19-41); Mean Corp Hgb Conc 32.7 g/dL (32-36); Mean Corpuscular Hgb 27.4 pg (27.0-32.0); Mean Corpuscular Volume 83.8 fL (81-99); Mean Platelet Vol. 10.1 fl (6.2-12.0); Monocyte# 0.63 X10^3/uL; Monocyte% 6.4 % (0-10); NRBC Flagged by Analyzer 0 % (0-5); Neutrophil # 7.03 X10^3/uL (2.7-7.7); Neutrophil % 71.1 % (47-70); Platelet Count 266 K/mm3 (150-450); RBC Distribution Width CV 12.8 % (11.6-14.6); RBC Distribution Width SD 38.8 fl (35.1-43.9); Red Blood Count 4.13 M/mm3 (4.2-5.4); White Blood Count 9.9 K/mm3 (4.4-11.0)
[2024-01-07 12:44] LABS: ALB/GLOB Ratio 0.7 RATIO (0.9-2.4); AST(SGOT) 13 U/L (15-37); Alanine Aminotransfer ALT/SGPT 16 U/L (13-56); Albumin, Serum 2.6 g/dL (3.2-5.0); Alkaline Phosphatase 112 U/L (45-117); Anion Gap 7 (5-15); BUN 8 mg/dL (7-18); BUN/Creat Ratio 15.6 RATIO (10-20); Calcium,Total 8.7 mg/dL (8.5-10.1); Chloride 106 mmol/L (98-107); Creatinine, Serum 0.51 mg/dL (0.55-1.02); EST Glomerular Filtration Rate 158 mL/min (>60); Est Glom Filt Rate - Afr Amer 191 mL/min (>60); Globulin 3.8 g/dL (2.2-4.2); Glucose 97 mg/dL (74-106); Potassium 3.7 mmol/L (3.5-5.1); Protein, Total 6.4 g/dL (6.4-8.2); Protein, Urine (Random) 21.3 mg/dL (<11.9); Protein:Creat Ratio 125 mg/g CRE (0-200); Sodium Level 137 mmol/L (136-145)
== END | disposition home or self-care (01) ==
LOC: LAB 11:44
PROVIDERS: PCP Physician Assistant; Referring Provider Nurse Practitioner Women's Health; Visit Provider Nurse Practitioner Women's Health
DX: O09.299 Supervision of pregnancy with other poor reproductive or obstetric history, unspecified trimester (principal); Z3A.00 Weeks of gestation of pregnancy not specified
CPT/HCPCS: 36415; 80053; 82570; 84156; 85025

== ENCOUNTER → 2024-01-14 | Outpatient (CLI) | payer OTHER, SELFPAY ==
--- NOTE | 2024-01-14 11:32 | US_ITS ---
STUDY: Ultrasound OB limited 1 or more fetus REASON FOR EXAM: Female, 23 years old growth PROVIDED GESTATIONAL AGE: 34 weeks 6 days correlating with February 19, 2024 delivery date PRIOR ULTRASOUND: December 20, 2023. TECHNIQUE: Transabdominal ultrasound grayscale color flow and M-mode Doppler FINDINGS: There is a single intrauterine fetus. The fetus is in a cephalic presentation. There is demonstrated cardiac activity with a heart rate of 135 bpm. There is a normal amniotic fluid volume. The largest amniotic fluid pocket measures 4.7 cm. The amniotic fluid index (LILIAN) is 12.8 cm. The placenta is posterior There are Grade 1 placental changes. The cervix is obscured by cranial shadow. BIOMETRY: BPD: 8.5 cm: 34 weeks, 1 days HC: 30.4 cm: 33 weeks, 6 days AC: 30.7 cm: 34 weeks, 5 days FL: 6.4 cm: 32 weeks, 6 days age by current US: 33 weeks, 5 days. BIRD by current US: February 27, 2024. Estimated weight: 2370 grams, +/- 356 grams, 28 percentile compared to prior dating. US/OB Limited With Biometrics IMPRESSION: Single live intrauterine with normal heart rate. growth by biometry is concordant with provided dating Electronically Signed: Delgado Mccall MD at 8:58 EDT ,
== END | disposition home or self-care (01) ==
LOC: US 11:29
PROVIDERS: PCP Physician Assistant; Referring Provider Obstetrics & Gynecology; Visit Provider Obstetrics & Gynecology
DX: O99.213 Obesity complicating pregnancy, third trimester (principal); Z3A.00 Weeks of gestation of pregnancy not specified
CPT/HCPCS: 76816

== ENCOUNTER 2024-01-24 10:22 | Outpatient (CLI) | payer OTHER, SELFPAY ==
--- NOTE | 2024-01-24 10:40 | US_ITS ---
STUDY: OBSTETRICAL ULTRASOUND - BIOPHYSICAL PROFILE REASON FOR EXAM: Female, 23 years old well-being LMP: PRIOR ULTRASOUND: 01/14/2024 TECHNIQUE: Transabdominal TECHNICAL QUALITY: Adequate. FINDINGS: There is a single intrauterine fetus. The fetus is in a cephalic presentation. There is demonstrated cardiac activity with a heart rate of 152 bpm. There is a normal amniotic fluid volume. The largest amniotic fluid pocket measures 5.1 cm. The amniotic fluid index (LILIAN) is 16.0 cm. The placenta is posterior in location and is not low lying. There are Grade 1 placental changes. Age by LMP: weeks, days. BIRD by LMP: . age by prior US: 36 weeks, 2 days. BIRD by prior US: 02/19/2024. age by current US: weeks, days. BIRD by current US: . Gender: BIOPHYSICAL PROFILE: Breathing Movements (FBM): 2 Gross Body Movements (GBM): 2 Tone (FT): 2 Amniotic Fluid Volume (AFV): 2 TOTAL SCORE: / US/Biophysical Prof W/O Non Stres IMPRESSION: Normal biophysical profile of 01/08. Electronically Signed: Aidan Judge MD at 13:31 EDT ,
[2024-01-24 10:56] VITALS: RESP 18; TEMP 36.6
[2024-01-24 10:57] VITALS: BP 140/70; PULSE 110
[2024-01-24 11:10] LABS: Hematocrit 33.2 % (37-47); Hemoglobin 10.9 g/dL (12.0-15.0); Mean Corp Hgb Conc 32.8 g/dL (32-36); Mean Corpuscular Hgb 26.7 pg (27.0-32.0); Mean Corpuscular Volume 81.2 fL (81-99); Mean Platelet Vol. 10.4 fl (6.2-12.0); Platelet Count 236 K/mm3 (150-450); RBC Distribution Width CV 13.2 % (11.6-14.6); RBC Distribution Width SD 37.8 fl (35.1-43.9); Red Blood Count 4.09 M/mm3 (4.2-5.4); White Blood Count 10.7 K/mm3 (4.4-11.0)
[2024-01-24 11:19] VITALS: BMI 43.3
[2024-01-24 11:29] LABS: AST(SGOT) 12 U/L (15-37); Alanine Aminotransfer ALT/SGPT 17 U/L (13-56); Creatinine, Serum 0.52 mg/dL (0.55-1.02); EST Glomerular Filtration Rate 155 mL/min (>60); Est Glom Filt Rate - Afr Amer 187 mL/min (>60); Estimated Creatinine Clearance 203.17 ml/min; Uric Acid 2.8 mg/dL (2.6-6.0)
[2024-01-24 11:40] VITALS: BP 131/70; PULSE 105
[2024-01-24 12:44] LABS: Protein, Urine (Random) 27.8 mg/dL (<11.9); Protein:Creat Ratio 163 mg/g CRE (0-200)
--- NOTE | 2024-01-24 18:04 | OB.TRI.HP_ITS ---
HPI - General HPI Narrative CARIE GARDNER, is a 23 F who presents at 36.2 for extended monitoring following non-reactive nst in office. Maternal Data Information BIRD Calculator Estimated Delivery Date Method Current WG Current Estimate 02/19/24 LMP (Certain) 36w 2d Other Estimates 02/19/24 Ultrasound #1 36w 2d PFSH PFSH Medical History depression Vaginal delivery Short interval between pregnancies affecting , antepartum Vaginal delivery Anxiety and depression Home Medications ?Medication ?Instructions ?Recorded ?Last Taken ?Type sertraline 100 mg tablet 100 mg PO DAILY #90 tabs 09/11/22 01/23/24 11:00 Rx 100 mg multivitamin no.47-iron fum 27 cap PO 07/12/23 01/23/24 20:00 History mg-folate no.1 1 mg-dha 300 mg 1 cap capsule (PNV-DHA) ondansetron 4 mg disintegrating 4 mg PO Q6H PRN nausea and 08/13/23 Unknown Rx tablet vomiting #30 tabs Allergy/AdvReac Type Severity Reaction Status Date / Time No Known Allergies Allergy Verified 01/24/24 10:51 Family History Grandfather Webbed fingers FOB -Paternal Surgical History No significant past surgical history Social History adopted: No household members: significant other and children housing: house number of children: 2 current occupational status: employed and unemployed current occupation: [employer] pets and animals: Yes pets and animals: dog(s) history of recent travel: No sexually active: Yes Smoking Status: Never smoker second hand exposure: No alcohol intake: never substance use type: does not use well-balanced diet: about half the time caffeine: Yes (Celcius- half of one) Type: other Number of servings: 1 eating out: 1-3 times/week during the past year weight has: remained stable what type of physical activity do you participate in: none amilcar/samaritan: None seatbelt use: always do you feel safe at home: Yes additional social history: Monique Woodward History 3 Elective abortions Hx Para 2 Spontaneous abortions Hx # Term Pregnancies Ectopic pregnancies Hx # Pregnancies Multiple births # of living children 2 Past Pregnancies Del. Date Name GA/Weeks Outcome Route Bth Weight Gen Labor Lgth Anesthesia Del Locatn Provider FOB 12/17/20 Mathew Moon 38 live - full term 7# 8o z Male 12 hour epidural [facility] JENIFER PJ 04/27/22 Socorro 37 live - full term 7lbs Female [facility] Dianne Hernandezion PJ Delivery Date: 12/17/20 Last Updated by: Jaz Marcano METAL ROASTER, METAL ROASTER-C IOL for HTN Delivery Date: 04/27/22 Last Updated by: Karli Wayne see problem list for complications, and pre-e Visit Details Expected Delivery Route/Plan Labor Preferences- CB/BF classes: [] labor support person: [] labor intervention preferences: [] pain management options preferred: [] cut cord/dad catch: [] : [] PP control planned: [] discussed possible routes of delivery and associated risks: [] special requests: [] Plans Covid status: [] Flu vaccine: [] Tdap vaccine: [] Rhogam: [] LARC form signed: [] Problem list reviewed and updated with the most current plan of care details and appropriate orders placed. Relevant counseling for the gestational age provided. Continue routine care and follow up unless otherwise noted in visit notes/problem list details OB Flowsheet Initial Weight: Not Recorded Date -?-?-?-?-?-?-?-?-?-?-?-?- EGA Weight BP Urine Prot -?-?-?-?-?-?-?-?-?-?-?-?- Glucose FHR FuHt Pres Dilation -?-?-?-?-?-?-?-?-?-?-?-?- Effaced St Visit Note 08/13/23 -?-?-?-?-?-?-?-?-?-?-?-?- 12w 6d 232 lb 4 oz 116/82 Nega tive -?-?-?-?-?-?-?-?-?-?-?-?- Negative -?-?-?-?-?-?-?--?-?-?-?-?- kw- no vb/crampi ng. MFM US ordered. boubacar requested for N/V. movement and FHT noted on handheld US today. Discussed Results of NIPT-decided against redoing 09/12/23 -?-?-?-?-?-?-?-?-?-?-?-?- 17w 1d 234 lb 126/85 126/85 -?-?-?-?-?-?-?-?-?-?-?-?- 160 -?-?-?-?-?-?-?-?-?-?-?-?- SM- no vb crmapi ng SM- no vb no constant crmapi ng 10/09/23 -?-?-?-?-?-?-?-?-?-?-?-?- 21w 0d 232 lb 120/72 Negative -?-?-?-?-?-?-?-?-?-?-?-?- Negative 145 -?-?-?-?-?-?-?-?-?-?-?-?- MH-No VB, crampi ng. Feeling movement. Denies concerns 11/01/23 -?-?-?-?-?-?-?-?-?-?-?-?- 24w 2d 237 lb 4 oz 135/84 Nega tive -?-?-?-?-?-?-?-?-?-?-?-?- Negative 140 24 -?-?-?-?-?-?-?-?-?-?-?-?- kw- work in for bleeding only with wiping. no lof/ctx. good fm. cervix closed. US ordered for growth follow up. kw- work in for bleeding onl y with wiping. no lof/ctx. good fm. cervix closed. urine clear. US ordered for growth follow up. 11/11/23 -?-?-?-?-?-?-?-?-?-?-?-?- 25w 5d 239 lb 4 oz 121/75 Nega tive -?-?-?-?-?-?-?-?-?-?-?-?- Negative 140 -?-?-?-?-?-?-?-?-?-?-?-?- KW- good fm. sti ll having occasional spotting. Has a follow up US with MFM for shadowing on the brain at [facility] US. plan growth US q 4 weeks. LARC today and 28 week labs getting drawn today. 12/09/23 -?-?-?-?-?-?-?-?-?-?-?-?- 29w 5d 240 lb 120/96 Negative -?-?-?-?-?-?-?-?-?-?-?-?- Negative 145 31 -?-?-?-?-?-?-?-?-?-?-?-?- JV- JV-last growth scan was 49th % plan monthly growth scans and weekly nsts starting 34 weeks. 12/25/23 -?-?-?-?-?-?-?-?-?-?-?-?- 32w 0d 241 lb 126/84 Negative -?-?-?-?-?-?-?-?-?-?-?-?- Negative 128 33 -?-?-?-?-?-?-?-?-?-?-?-?- MH-No VB, LOF. G ood FM. Has had elevated BPs at home but didn't call them in. Blurry vision 2 days ago but none since. Enc to call elevated reading. Also itching of palm of hands. NO rash or pain. CBC, CMP and bile acids. Growth US 36wk. 01/07/24 -?-?-?-?-?-?-?-?-?-?-?-?- 33w 6d 239 lb 8 oz 129/79 Trac e -?-?-?-?-?-?-?-?-?-?-?-?- Negative 140 35 -?-?-?-?-?-?-?-?-?-?-?-?- MH-No VB, LOF. G ood FM. Reactive NST. Some blurry vision off and on. Denies headache. Will get pre E labs. 01/17/24 -?-?-?-?-?-?-?-?-?-?-?-?- 35w 2d 243 lb 124/81 Negative -?-?-?-?-?-?-?-?-?-?-?-?- Negative 130 -?-?-?-?-?-?-?-?-?-?-?-?- JV- nst reactive , no complaints other than some dizzy spells when on feet. normal pih labs previously and normal bile acids. recommend compression stockings. RTO in on week 01/24/24 -?-?-?-?-?-?-?-?-?-?-?-?- 36w 2d 244 lb 2 oz 126/82 Nega tive -?-?-?-?-?-?-?-?-?-?-?-?- 100 g/dL 140 -?-?-?-?-?-?-?-?-?-?-?-?- KW- NST nonreact alana. To for BPP and monitoring. GBS positive in urine. GLucose in urine today, still complaining of dizzy spells. start testing glucose 4x daily and bring to next visit. KW- NST nonreactive. To WP f or BPP and monitoring. GBS positive in urine. GLucose in urine today, still complaining of dizzy spells. check glucose on WP NST FHR Rate Baby A Baseline: 140 Variability:: Moderate Accelerations:: 15 x 15 Decelerations:: None NST Reactive:: Yes FHR Category:: Category I Assessment & Plan (1) Non-reactive NST (non-stress test): COMMENT: in office. sent to for extended monitoring with reassuring FHR (2) Supervision of high-risk : QUALIFIERS: Trimester: third trimester Qualified Code(s): O09.93 - Supervision of high risk , unspecified, third trimester COMMENT: PRR , BIRD 02/19/24, PC Socorro Carmona Fiance -Patrick (3) : QUALIFIERS: Weeks of gestation: 36 weeks Qualified Code(s): Z3A.36 - 36 weeks gestation of COMMENT: NIPT insufficient DNA- decline redraw unless anatomy scan abnormal &declined ntd and carrier testing (4) Hx of pre-eclampsia in prior , currently : COMMENT: Baseline labs ordered with NOB labs baby asa PLAN: Plan Patient presents for triage evaluation secondary to non-reactive NST in WP. BPP 01/08 with reassuring tracing in WP. PEC labs obtained for headache, all normal. FHT: Moderate variability reactive no decelerations category I tracing [place]: Contractions Assessment and plan: Reactive NST, reassuring maternal and status patient discharged to home to follow-up in office. See problem list details for additional plan information. Charges/Coding Procedures Urinary/Genital [id number]: 00577-55 non-stress test Interp (36.2 weeks. ) Multi Select Codes Urinary/Genital Urinary/Genital CPT Codes: 38194-52 non-stress test Interp
== END 2024-01-24 12:35 | disposition home or self-care (01) ==
LOC: WPOUT 10:37 → WP 10:38
PROVIDERS: Advanced Practice Midwife; PCP Physician Assistant; Referring Provider Registered Nurse; Visit Provider Registered Nurse
DX: O09.93 Supervision of high risk pregnancy, unspecified, third trimester (principal); O99.343 Other mental disorders complicating pregnancy, third trimester; F41.9 Anxiety disorder, unspecified; Z3A.36 36 weeks gestation of pregnancy; F32.A Depression, unspecified; Z79.899 Other long term (current) drug therapy
CPT/HCPCS: 36415; 59025; 59050; 76819; 82565; 82570; 84156; 84450; 84460; 84550; 85027; 99221; G0378

== ENCOUNTER 2024-01-26 17:23 | Outpatient (CLI) | payer OTHER, SELFPAY ==
[2024-01-26] VITALS (7 sets, daily range): BP systolic 139–147; BP diastolic 82–96; PULSE 105–114; RESP 16; TEMP 36.7; O2SAT 97; BMI 43.1
[2024-01-26 18:19] LABS: Hematocrit 33.1 % (37-47); Hemoglobin 10.9 g/dL (12.0-15.0); Mean Corp Hgb Conc 32.9 g/dL (32-36); Mean Corpuscular Hgb 26.5 pg (27.0-32.0); Mean Corpuscular Volume 80.5 fL (81-99); Mean Platelet Vol. 10.1 fl (6.2-12.0); Platelet Count 263 K/mm3 (150-450); RBC Distribution Width CV 13.2 % (11.6-14.6); RBC Distribution Width SD 37.8 fl (35.1-43.9); Red Blood Count 4.11 M/mm3 (4.2-5.4); White Blood Count 10.5 K/mm3 (4.4-11.0)
[2024-01-26 18:29] LABS: Protein, Urine (Random) 24.2 mg/dL (<11.9); Protein:Creat Ratio 149 mg/g CRE (0-200)
[2024-01-26 18:32] LABS: AST(SGOT) 14 U/L (15-37); Alanine Aminotransfer ALT/SGPT 16 U/L (13-56); Creatinine, Serum 0.42 mg/dL (0.55-1.02); EST Glomerular Filtration Rate 198 mL/min (>60); Est Glom Filt Rate - Afr Amer 239 mL/min (>60); Estimated Creatinine Clearance 250.74 ml/min; Uric Acid 2.8 mg/dL (2.6-6.0)
--- NOTE | 2024-01-27 08:07 | OB.TRI.HP_ITS ---
HPI - General HPI Narrative CARIE GARDNER, is a 23 F who presents with elevated BPs at home. 150s/90s. occasionally seeing spots, denies headache today, but had mild headache saturday/saturday without need for tylenol/intervention. Maternal Data Information BIRD Calculator Estimated Delivery Date Method Current WG Current Estimate 02/19/24 LMP (Certain) 36w 5d Other Estimates 02/19/24 Ultrasound #1 36w 5d PFSH PFSH Medical History depression Vaginal delivery Short interval between pregnancies affecting , antepartum Vaginal delivery Anxiety and depression Home Medications ?Medication ?Instructions ?Recorded ?Last Taken ?Type sertraline 100 mg tablet 100 mg PO DAILY #90 tabs 09/11/22 01/23/24 11:00 Rx 100 mg multivitamin no.47-iron fum 27 1 cap PO DAILY 07/12/23 01/23/24 20:00 History mg-folate no.1 1 mg-dha 300 mg 1 cap capsule (PNV-DHA) ondansetron 4 mg disintegrating 4 mg PO Q6H PRN nausea and 08/13/23 Unknown Rx tablet vomiting #30 tabs Allergy/AdvReac Type Severity Reaction Status Date / Time No Known Allergies Allergy Verified 01/26/24 17:38 Family History Grandfather Webbed fingers FOB -Paternal Surgical History No significant past surgical history Social History adopted: No household members: significant other and children housing: house number of children: 2 current occupational status: employed and unemployed current occupation: [employer] pets and animals: Yes pets and animals: dog(s) history of recent travel: No sexually active: Yes Smoking Status: Never smoker second hand exposure: No alcohol intake: never substance use type: does not use well-balanced diet: about half the time caffeine: Yes (Celcius- half of one) Type: other Number of servings: 1 eating out: 1-3 times/week during the past year weight has: remained stable what type of physical activity do you participate in: none amilcar/orthodox: None seatbelt use: always do you feel safe at home: Yes additional social history: Monique Woodward History 3 Elective abortions Hx Para 2 Spontaneous abortions Hx # Term Pregnancies Ectopic pregnancies Hx # Pregnancies Multiple births # of living children 2 Past Pregnancies Del. Date Name GA/Weeks Outcome Route Bth Weight Gen Labor Lgth Anesthesia Del Locatn Provider FOB 12/17/20 Mathew Moon 38 live - full term 7# 8o z Male 12 hour epidural [facility] JENIFER PJ 04/27/22 [place] 37 live - full term 7lbs Female [facility] Dianne Benavidez PJ Delivery Date: 12/17/20 Last Updated by: Jaz Marcano PRACTICE PERFORMANCE MANAGER, PRACTICE PERFORMANCE MANAGER-C IOL for HTN Delivery Date: 04/27/22 Last Updated by: Karli Wayne see problem list for complications, and pre-e Visit Details Expected Delivery Route/Plan Labor Preferences- CB/BF classes: [] labor support person: [] labor intervention preferences: [] pain management options preferred: [] cut cord/dad catch: [] : [] PP control planned: [] discussed possible routes of delivery and associated risks: [] special requests: [] Plans Covid status: [] Flu vaccine: [] Tdap vaccine: [] Rhogam: [] LARC form signed: [] Problem list reviewed and updated with the most current plan of care details and appropriate orders placed. Relevant counseling for the gestational age provided. Continue routine care and follow up unless otherwise noted in visit notes/problem list details OB Flowsheet Initial Weight: Not Recorded Date -?-?-?-?-?-?-?-?-?-?-?-?- EGA Weight BP Urine Prot -?-?-?-?-?-?-?-?-?-?-?-?- Glucose FHR FuHt Pres Dilation -?-?-?-?-?-?-?-?-?-?-?-?- Effaced St Visit Note 08/13/23 -?-?-?-?-?-?-?-?-?-?-?-?- 12w 6d 232 lb 4 oz 116/82 Nega tive -?-?-?-?-?-?-?-?-?-?-?-?- Negative -?-?-?-?-?-?-?-?-?-?-?-?- kw- no vb/crampi ng. MFM US ordered. boubacar requested for N/V. movement and FHT noted on handheld US today. Discussed Results of NIPT-decided against redoing 09/12/23 -?-?-?-?-?-?-?-?-?-?-?-?- 17w 1d 234 lb 126/85 126/85 -?-?-?-?-?-?-?-?-?-?-?-?- 160 -?-?-?-?-?-?-?-?-?-?-?-?- SM- no vb crmapi ng SM- no vb no constant crmapi ng 10/09/23 -?-?-?-?-?-?-?-?-?-?-?-?- 21w 0d 232 lb 120/72 Negative -?-?-?-?-?-?-?-?-?-?-?-?- Negative 145 -?-?-?-?-?-?-?-?-?-?-?-?- MH-No VB, crampi ng. Feeling movement. Denies concerns 11/01/23 -?-?-?-?-?-?-?-?-?-?-?-?- 24w 2d 237 lb 4 oz 135/84 Nega tive -?-?-?-?-?-?-?-?-?-?-?-?- Negative 140 24 -?-?-?-?-?-?-?-?-?-?-?-?- kw- work in for bleeding only with wiping. no lof/ctx. good fm. cervix closed. US ordered for growth follow up. kw- work in for bleeding onl y with wiping. no lof/ctx. good fm. cervix closed. urine clear. US ordered for growth follow up. 11/11/23 -?-?-?-?-?-?-?-?-?-?-?-?- 25w 5d 239 lb 4 oz 121/75 Nega tive -?-?-?-?-?-?-?-?-?-?-?-?- Negative 140 -?-?-?-?-?-?-?-?-?-?-?-?- KW- good fm. sti ll having occasional spotting. Has a follow up US with MFM for shadowing on the brain at [facility] US. plan growth US q 4 weeks. LARC today and 28 week labs getting drawn today. 12/09/23 -?-?-?-?-?-?-?-?-?-?-?-?- 29w 5d 240 lb 120/96 Negative -?-?-?-?-?-?-?-?-?-?-?-?- Negative 145 31 -?-?-?-?-?-?-?-?-?-?-?-?- JV- JV-last growth scan was 49th % plan monthly growth scans and weekly nsts starting 34 weeks. 12/25/23 -?-?-?-?-?--?-?-?-?-?-?-?- 32w 0d 241 lb 126/84 Negative -?-?-?-?-?-?-?-?-?-?-?-?- Negative 128 33 -?-?-?-?-?-?-?-?-?-?-?-?- -No VB, LOF. G ood FM. Has had elevated BPs at home but didn't call them in. Blurry vision 2 days ago but none since. Enc to call elevated reading. Also itching of palm of hands. NO rash or pain. CBC, CMP and bile acids. Growth US 36wk. 01/07/24 -?-?-?-?-?-?-?-?-?-?-?-?- 33w 6d 239 lb 8 oz 129/79 Trac e -?-?-?-?-?-?-?-?-?-?-?-?- Negative 140 35 -?-?--?-?-?-?-?-?-?-?-?-?- MH-No VB, LOF. G ood FM. Reactive NST. Some blurry vision off and on. Denies headache. Will get pre E labs. 01/17/24 -?-?-?-?-?-?-?-?-?-?-?-?- 35w 2d 243 lb 124/81 Negative -?-?-?-?-?-?-?-?-?-?-?-?- Negative 130 -?-?-?-?-?-?-?-?-?-?-?-?- JV- nst reactive , no complaints other than some dizzy spells when on feet. normal pih labs previously and normal bile acids. recommend compression stockings. RTO in on week 01/24/24 -?-?-?-?-?-?-?-?-?-?-?-?- 36w 2d 244 lb 2 oz 126/82 Nega tive -?-?-?-?-?-?-?-?-?-?-?-?- 100 g/dL 140 -?-?-?-?-?-?-?-?-?-?-?-?- KW- NST nonreact alana. To WP for BPP and monitoring. GBS positive in urine. GLucose in urine today, still complaining of dizzy spells. start testing glucose 4x daily and bring to next visit. KW- NST nonreactive. To WP f or BPP and monitoring. GBS positive in urine. GLu cose in urine today, still complaining of dizzy spells. check glucose on WP NST FHR Rate Baby A Baseline: 130 Variability:: Moderate Accelerations:: 15 x 15 Decelerations:: None NST Reactive:: Yes FHR Category:: Category I Assessment & Plan (1) Elevated BP without diagnosis of hypertension: COMMENT: elevated bp x1 in WP with stable BPs following. PEC labs negative. continue twice daily BP at home. to call with additional readings over 140/90. PLAN: Patient presents for triage evaluation secondary to elevated BP at home, negative PEC work up with stablized BPs. FHT: Moderate variability reactive no decelerations category I tracing Delmita: Contractions Assessment and plan: Reactive NST, reassuring maternal and status patient discharged to home to follow-up in office.monitor bp twice daily and to call with additional bps 140/90. See problem list details for additional plan information. Charges/Coding Procedures Urinary/Genital 52xxx-59xxx: 15580-72 non-stress test Interp Multi Select Codes Urinary/Genital Urinary/Genital CPT Codes: 46039-53 non-stress test Interp
== END 2024-01-26 18:55 | disposition home or self-care (01) ==
LOC: WPOUT 17:32 → WP 17:33
PROVIDERS: PCP Physician Assistant; Referring Provider Registered Nurse; Visit Provider Registered Nurse
DX: O99.891 Other specified diseases and conditions complicating pregnancy (principal); R03.0 Elevated blood-pressure reading, without diagnosis of hypertension; Z3A.36 36 weeks gestation of pregnancy
CPT/HCPCS: 36415; 59025; 59050; 82565; 82570; 84156; 84450; 84460; 84550; 85027; 99221; G0378

== ENCOUNTER → 2024-01-30 | Outpatient (CLI) | payer OTHER, SELFPAY ==
[2024-01-30 16:11] LABS: Absolute Lymphocyte Count 2.29 X10^3/uL (0.83-4.51); Absolute Neutrophil Count 7.5 X10^3/uL (2.0-7.7); Basophil# 0.03 X10^3/uL; Basophil% 0.3 % (0-1); Eosinophil# 0.05 X10^3/uL; Eosinophils% 0.5 % (0-5); Hematocrit 34.2 % (37-47); Lymphocyte # 2.29 X10^3/ul (0.83-4.51); Mean Corp Hgb Conc 32.2 g/dL (32-36); Mean Corpuscular Hgb 26.3 pg (27.0-32.0); Mean Corpuscular Volume 81.8 fL (81-99); Mean Platelet Vol. 10.4 fl (6.2-12.0); Monocyte# 0.82 X10^3/uL; Monocyte% 7.5 % (0-10); NRBC Flagged by Analyzer 0 % (0-5); Neutrophil # 7.54 X10^3/uL (2.7-7.7); Neutrophil % 69.3 % (47-70); Platelet Count 268 K/mm3 (150-450); RBC Distribution Width CV 13.5 % (11.6-14.6); RBC Distribution Width SD 39.3 fl (35.1-43.9); Red Blood Count 4.18 M/mm3 (4.2-5.4); White Blood Count 10.9 K/mm3 (4.4-11.0)
[2024-01-30 16:45] LABS: ALB/GLOB Ratio 0.7 RATIO (0.9-2.4); AST(SGOT) 18 U/L (15-37); Alanine Aminotransfer ALT/SGPT 16 U/L (13-56); Albumin, Serum 2.7 g/dL (3.2-5.0); Alkaline Phosphatase 147 U/L (45-117); Anion Gap 7 (5-15); BUN 8 mg/dL (7-18); BUN/Creat Ratio 15.2 RATIO (10-20); Chloride 108 mmol/L (98-107); Creatinine, Serum 0.53 mg/dL (0.55-1.02); EST Glomerular Filtration Rate 154 mL/min (>60); Est Glom Filt Rate - Afr Amer 186 mL/min (>60); Glucose 89 mg/dL (74-106); Potassium 3.8 mmol/L (3.5-5.1); Protein, Total 6.7 g/dL (6.4-8.2); Sodium Level 138 mmol/L (136-145)
[2024-01-30 18:19] LABS: Protein, Urine (Random) 20.4 mg/dL (<11.9); Protein:Creat Ratio 198 mg/g CRE (0-200)
== END | disposition home or self-care (01) ==
PROVIDERS: PCP Physician Assistant; Referring Provider Advanced Practice Midwife; Visit Provider Advanced Practice Midwife
DX: R03.0 Elevated blood-pressure reading, without diagnosis of hypertension (principal)
CPT/HCPCS: 36415; 80053; 82570; 84156; 85025

== ENCOUNTER 2024-01-31 07:29 | Inpatient (IN) | payer OTHER, SELFPAY ==
[2024-01-31] VITALS (30 sets, daily range): BP systolic 125–183; BP diastolic 65–93; PULSE 89–115; RESP 16–18; TEMP 36.4–36.9; O2SAT 97–99; BMI 43.4
--- NOTE | 2024-01-31 07:29 | HP.PCM.OB_ITS ---
HPI - General General Date of Admission: 01/31/24 HPI Narrative CARIE GARDNER, is a 23 F who presents for IOL secondar yto GHTN. she has had elevate dbps at home 140s over 90s and inctermittent QUEZADA. 4 cm in the office yesterday Maternal Data Information BIRD Calculator Estimated Delivery Date Method Current WG Current Estimate 02/19/24 LMP (Certain) 37w 2d Other Estimates 02/19/24 Ultrasound #1 37w 2d PFSH PFSH Medical History depression Vaginal delivery Short interval between pregnancies affecting , antepartum Vaginal delivery Anxiety and depression Home Medications ?Medication ?Instructions ?Recorded ?Last Taken ?Type sertraline 100 mg tablet 100 mg PO DAILY #90 tabs 09/11/22 01/23/24 11:00 Rx 100 mg multivitamin no.47-iron fum 27 1 cap PO DAILY 07/12/23 01/23/24 20:00 History mg-folate no.1 1 mg-dha 300 mg 1 cap capsule (PNV-DHA) ondansetron 4 mg disintegrating 4 mg PO Q6H PRN nausea and 08/13/23 Unknown Rx tablet vomiting #30 tabs Allergy/AdvReac Type Severity Reaction Status Date / Time No Known Allergies Allergy Verified 01/30/24 14:10 Family History Grandfather Webbed fingers FOB -Paternal Surgical History No significant past surgical history Social History adopted: No household members: significant other and children housing: house number of children: 2 current occupational status: employed and unemployed current occupation: [employer] pets and animals: Yes pets and animals: dog(s) history of recent travel: No sexually active: Yes Smoking Status: Never smoker second hand exposure: No alcohol intake: never substance use type: does not use well-balanced diet: about half the time caffeine: Yes (Celcius- half of one) Type: other Number of servings: 1 eating out: 1-3 times/week during the past year weight has: remained stable what type of physical activity do you participate in: none amilcar/cheondoism: None seatbelt use: always do you feel safe at home: Yes additional social history: Monique Woodward History 3 Elective abortions Hx Para 2 Spontaneous abortions Hx # Term Pregnancies Ectopic pregnancies Hx # Pregnancies Multiple births # of living children 2 Past Pregnancies Del. Date Name GA/Weeks Outcome Route Bth Weight Infant Gen Labor Lgth Anesthesia Del Locatn Provider FOB 12/17/20 Mathew Jose Moon 38 live - full term 7# 8o z Male 12 hour epidural [facility] SM PJ 04/27/22 [place] 37 live - full term 7lbs Female [facility] Dianne Benavidez PJ Delivery Date: 12/17/20 Last Updated by: Jaz Marcano CARTON LINER, CARTON LINER-C IOL for HTN Delivery Date: 04/27/22 Last Updated by: Karli Wayne see problem list for complications, and pre-e Visit Details Expected Delivery Route/Plan Labor Preferences- CB/BF classes: [] labor support person: [] labor intervention preferences: [] pain management options preferred: [] cut cord/dad catch: [] : [] PP control planned: [] discussed possible routes of delivery and associated risks: [] special requests: [] Plans Covid status: [] Flu vaccine: [] Tdap vaccine: [] Rhogam: [] LARC form signed: [] Problem list reviewed and updated with the most current plan of care details and appropriate orders placed. Relevant counseling for the gestational age provided. Continue routine care and follow up unless otherwise noted in visit notes/problem list details OB Flowsheet Initial Weight: Not Recorded Date -?-?-?-?-?-?-?-?-?-?-?-?- EGA Weight BP Urine Prot -?-?-?-?-?-?-?-?-?-?-?-?- Glucose FHR FuHt Pres Dilation -?-?-?-?-?-?-?-?-?-?-?-?- Effaced St Visit Note 08/13/23 -?-?-?-?-?-?-?-?-?-?-?-?- 12w 6d 232 lb 4 oz 116/82 Nega tive -?-?-?-?-?-?-?-?-?-?-?-?- Negative -?-?-?-?-?-?-?-?-?-?-?-?- kw- no vb/crampi ng. MFM US ordered. boubacar requested for N/V. movement and FHT noted on handheld US today. Discussed Results of NIPT-decided against redoing 09/12/23 -?-?-?-?-?-?-?-?-?-?-?-?- 17w 1d 234 lb 126/85 126/85 -?-?-?-?-?-?-?-?-?-?-?-?- 160 -?-?-?-?-?-?-?-?-?-?-?-?- SM- no vb crmapi ng SM- no vb no constant crmapi ng 10/09/23 -?-?-?-?-?-?-?-?-?-?-?-?- 21w 0d 232 lb 120/72 Negative -?-?-?-?-?-?-?-?-?-?-?-?- Negative 145 -?-?-?-?-?-?-?-?-?-?-?-?- MH-No VB, crampi ng. Feeling movement. Denies concerns 11/01/23 -?-?-?-?-?-?-?-?-?-?-?-?- 24w 2d 237 lb 4 oz 135/84 Nega tive -?-?-?-?-?-?-?-?-?-?-?-?- Negative 140 24 -?-?-?-?-?-?-?-?-?-?-?-?- kw- work in for bleeding only with wiping. no lof/ctx. good fm. cervix closed. US ordered for growth follow up. kw- work in for bleeding onl y with wiping. no lof/ctx. good fm. cervix closed. urine clear. US ordered for growth follow up. 11/11/23 -?-?-?-?-?-?-?-?-?-?-?-?- 25w 5d 239 lb 4 oz 121/75 Nega tive -?-?-?-?-?-?-?-?-?-?-?-?- Negative 140 -?-?-?-?-?-?-?-?-?-?-?-?- KW- good fm. sti ll having occasional spotting. Has a follow up US with MFM for shadowing on the brain at [facility] US. plan growth US q 4 weeks. LARC today and 28 week labs getting drawn today. 12/09/23 -?-?-?-?-?-?-?-?-?-?-?-?- 29w 5d 240 lb 120/96 Negative -?-?-?-?-?-?-?-?-?-?-?-?- Negative 145 31 -?-?-?-?-?-?-?-?-?-?-?-?- JV- JV-last growth scan was 49th % plan monthly growth scans and weekly nsts starting 34 weeks. 12/25/23 -?-?-?-?-?-?-?-?-?-?-?-?- 32w 0d 241 lb 126/84 Negative -?-?-?-?-?-?-?-?-?-?-?-?- Negative 128 33 -?-?-?-?-?-?-?-?-?-?-?-?- MH-No VB, LOF. G ood FM. Has had elevated BPs at home but didn't call them in. Blurry vision 2 days ago but none since. Enc to call elevated reading. Also itching of palm of hands. NO rash or pain. CBC, CMP and bile acids. Growth US 36wk. 01/07/24 -?-?-?-?-?-?-?-?-?-?-?-?- 33w 6d 239 lb 8 oz 129/79 Trac e -?-?-?-?-?-?-?-?-?-?-?-?- Negative 140 35 -?-?-?-?-?-?-?-?-?-?-?-?- MH-No VB, LOF. G ood FM. Reactive NST. Some blurry vision off and on. Denies headache. Will get pre E labs. 01/17/24 -?-?-?-?-?-?-?-?-?-?-?-?- 35w 2d 243 lb 124/81 Negative -?-?-?-?-?-?-?-?-?-?-?-?- Negative 130 -?-?-?-?-?-?-?-?-?-?-?-?- JV- nst reactive , no complaints other than some dizzy spells when on feet. normal pih labs previously and normal bile acids. recommend compression stockings. RTO in on week 01/24/24 -?-?-?-?-?-?-?-?-?-?-?-?- 36w 2d 244 lb 2 oz 126/82 Nega tive -?-?-?-?-?-?-?-?-?-?-?-?- 100 g/dL 140 -?-?-?-?-?-?-?-?-?-?-?-?- KW- NST nonreact alana. To WP for BPP and monitoring. GBS positive in urine. GLucose in urine today, still complaining of dizzy spells. start testing glucose 4x daily and bring to next visit. KW- NST nonreactive. To WP f or BPP and monitoring. GBS positive in urine. GLucose in urine today, still complaining of dizzy spells. check glucose on WP 01/27/24 -?-?-?-?-?-?-?-?-?-?-?-?- 36w 5d 244 lb 125/84 -?-?-?-?-?-?-?-?-?-?-?-?- 135 36 3 -?-?-?-?-?-?-?-?-?-?-?-?- 50 -3 KW- NST re active. Still having some dizziness and random headaches. PRe e labs normal yesterday. was in WP for elevated BPs. TO bring BP cuff into office to compare. 01/30/24 -?-?-?-?-?-?-?-?-?-?-?-?- 37w 1d 245 lb 136/88 Trace -?-?-?-?-?-?-?-?-?-?-?-?- Negative 135 4 -?-?-?-?-?-?-?-?-?-?-?-?- 60 -2 KW- NST re active. having elevated BPs at home. positive protein in urine. BP cuff compared with home cuff and home cuff reading much higher than cuff here. Pre e labs today. if elevated will induce this weekend NST FHR Rate Baby A Baseline: 130 Variability:: Moderate Accelerations:: 15 x 15 Decelerations:: None NST Reactive:: Yes FHR Category:: Category I Uterine Activity:: irregular ROS Constitutional Constitutional: Reports systems reviewed and no addt'l complaints, except as documented Eyes Eyes: Denies change in vision ENT HEENT: Reports systems reviewed and no addt'l complaints, except as documented; Denies headache(s) Cardiovascular Cardiovascular: Reports systems reviewed and no addt'l complaints, except as documented; Denies chest pain or dyspnea Respiratory/Chest Respiratory/Chest: Reports systems reviewed and no addt'l complaints, except as documented Gastrointestinal Gastrointestinal: Reports systems reviewed and no addt'l complaints, except as documented; Denies abdominal pain Genitourinary Genitourinary: Reports systems reviewed and no addt'l complaints, except as documented, contractions Details: present (irregular) and movement Details: present; Denies dysuria or genital lesions Musculoskeletal Musculoskeletal: Reports systems reviewed and no addt'l complaints, except as documented Neurologic Neurologic: Reports systems reviewed and no addt'l complaints, except as documented Endocrine Endocrinology: Reports systems reviewed and no addt'l complaints, except as documented Physical Exam Const alert, oriented x3, no apparent distress and healthy appearing HEENT normocephalic and moist oral mucous membranes Head and Scalp: atraumatic Neck full ROM, no lymphadenopathy, supple and thyroid normal General: trachea midline Lymph Lymphatic: no lymphadenopathy noted Chest inspection of chest normal Resp normal respiratory effort Cardio regular rate GI normal to inspection, nondistended, normoactive bowel sounds, soft to palpation and non-tender Inspection: gravid external exam normal Manual OB Exam: estimated gestational size appropriate, presentation cephalic, dilated, effaced and station Extremity normal to inspection General Extremity: Negative for edema Skin no rashes or lesions noted Neuro no focal motor deficits and deep tendon reflexes 2+ bilaterally Motor Exam: strength 5/5 throughout and clonus absent Psych mental status grossly normal Labs Labs Labs: Blood Type O POSITIVE Antibody Screen NEGATIVE Hct 34.2 % (37-47) L Hgb 11.0 g/dL (12.0-15.0) L Obstetrics Ultrasound Syphilis Total Ab Non-reactive Rubella IgG Antibody Reactive (Nonreactive) Hep Bs Antigen Non-Reactive (Nonreactive) Hepatitis C Antibody Non-Reactive (Nonreactive) Chlamydia DNA (LIONEL) Negative (Negative) N.gonorrhoeae DNA (LIONEL) Negative (Negative) HIV 1&2 Antibody Non-Reactive (Nonreactive) Glucose 1 Hr 50 gm 114 mg/dL (70-140) Gest Glucose Tolerance MG/DL Rhogam given: No Miscellaneous Test Assessment & Plan (1) induced hypertension: (2) Obesity affecting : QUALIFIERS: Trimester: third trimester Obesity type affecting : unspecified obesity Qualified Code(s): O99.213 - Obesity complicating , third trimester COMMENT: BMI over 40. NSTs at 34 weeks. q 4 week growth US- tried growth scan with [facility] and views were too limited. Our remote radiologist thinks due to shadowing the brain looks abnormal. needs to go back to [facility]. (3) Marginal insertion of umbilical cord: COMMENT: Growth Q4wk (4) Nausea and vomiting during : COMMENT: resolved (5) GBS (group B streptococcus) UTI complicating : QUALIFIERS: Trimester: third trimester Qualified Code(s): O23.43 - Unspecified infection of urinary tract in , third trimester; B95.1 - Streptococcus, group B, as the cause of diseases classified elsewhere COMMENT: treat in labor (6) Supervision of high-risk : QUALIFIERS: Trimester: third trimester Qualified Code(s): O09.93 - Supervision of high risk , unspecified, third trimester COMMENT: PRR , BIRD 02/19/24, PC Socorro Carmona Fiance -Patrick (7) : QUALIFIERS: Weeks of gestation: 37 weeks Qualified Code(s): Z3A.37 - 37 weeks gestation of COMMENT: NIPT insufficient DNA- decline redraw unless anatomy scan abnormal &declined ntd and carrier testing (8) Hx of pre-eclampsia in prior , currently : COMMENT: Baseline labs ordered with NOB labs baby asa (9) Anxiety and depression: COMMENT: zoloft, counseling; stable PLAN: Plan Patient presents IOL, plan management for with pitocin/AROM. Pain management: plans epidural. GBS post- PCN Management of any complications: none I have reviewed the PFSH and made any clinically relevant updates.
[2024-01-31 08:22] LABS: Absolute Lymphocyte Count 1.86 X10^3/uL (0.83-4.51); Absolute Neutrophil Count 7.4 X10^3/uL (2.0-7.7); Basophil# 0.04 X10^3/uL; Basophil% 0.4 % (0-1); Eosinophil# 0.05 X10^3/uL; Eosinophils% 0.5 % (0-5); Hemoglobin 10.8 g/dL (12.0-15.0); Lymphocyte # 1.86 X10^3/ul (0.83-4.51); Lymphocyte % 18.4 % (19-41); Mean Corp Hgb Conc 31.8 g/dL (32-36); Mean Corpuscular Hgb 25.7 pg (27.0-32.0); Mean Platelet Vol. 10.1 fl (6.2-12.0); Monocyte# 0.74 X10^3/uL; Monocyte% 7.3 % (0-10); NRBC Flagged by Analyzer 0 % (0-5); Neutrophil # 7.37 X10^3/uL (2.7-7.7); Neutrophil % 72.7 % (47-70); Platelet Count 236 K/mm3 (150-450); RBC Distribution Width CV 13.5 % (11.6-14.6); RBC Distribution Width SD 39.1 fl (35.1-43.9); White Blood Count 10.1 K/mm3 (4.4-11.0)
[2024-01-31] MEDS: Penicillin G Pot 5,000,000 UNITS in 0.9% Normal Saline (100mL MB+) 100 ML 150 UNITS IV (08:26)
[2024-01-31] MEDS: Oxytocin 15 Units/NS 250ml 15 UNITS/250 ML IV.SOLN 2 UNITS IV (08:27)
[2024-01-31] MEDS: Lactated Ringers 1,000 ML 50 ML IV (08:27)
[2024-01-31 10:22] LABS: Syphilis Antibodies Non-reactive
[2024-01-31] MEDS: Penicillin G 3,000,000 Units 50 ML 100 UNITS IV (12:15)
[2024-01-31] MEDS: Ondansetron 4 MG/2 ML Vial IV (14:25)
[2024-01-31] MEDS: Oxytocin 15 Units/NS 250ml 15 UNITS/250 ML IV.SOLN 334 UNITS IV (14:49)
[2024-01-31] MEDS: Oxytocin 15 Units/NS 250ml 15 UNITS/250 ML IV.SOLN 83 UNITS IV (15:35)
--- NOTE | 2024-01-31 16:44 | OP.PCM_ITS ---
Assessment & Plan (1) induced hypertension: (2) Pruritus of in third trimester: COMMENT: Hands only. No rash/pain. CBC, CMP, bile acids/nl (3) Obesity affecting : QUALIFIERS: Trimester: third trimester Obesity type affecting : unspecified obesity Qualified Code(s): O99.213 - Obesity complicating , third trimester COMMENT: BMI over 40. NSTs at 34 weeks. q 4 week growth US- tried growth scan with [facility] and views were too limited. Our remote radiologist thinks due to shadowing the brain looks abnormal. needs to go back to [facility]. (4) Marginal insertion of umbilical cord: COMMENT: Growth Q4wk (5) Nausea and vomiting during : COMMENT: resolved (6) GBS (group B streptococcus) UTI complicating : QUALIFIERS: Trimester: third trimester Qualified Code(s): O23.43 - Unspecified infection of urinary tract in , third trimester; B95.1 - Streptococcus, group B, as the cause of diseases classified elsewhere COMMENT: treat in labor (7) Supervision of high-risk : QUALIFIERS: Trimester: third trimester Qualified Code(s): O09.93 - Supervision of high risk , unspecified, third trimester COMMENT: PRR , BIRD 02/19/24, PC Socorro Carmona Fiance -Patrick (8) : QUALIFIERS: Weeks of gestation: 37 weeks Qualified Code(s): Z3A.37 - 37 weeks gestation of COMMENT: NIPT insufficient DNA- decline redraw unless anatomy scan abnormal &declined ntd and carrier testing (9) Hx of pre-eclampsia in prior , currently : COMMENT: Baseline labs ordered with NOB labs baby asa (10) Anxiety and depression: COMMENT: zoloft, counseling; stable (11) Vaginal delivery: COMMENT: IOL ghtn sm 37 boy Maternal Data Information BIRD Calculator Estimated Delivery Date Method Current WG Current Estimate 02/19/24 LMP (Certain) 37w 2d Other Estimates 02/19/24 Ultrasound #1 37w 2d Vaginal Delivery Operative Information Date of Procedure: 01/31/24 Pre-Operative Diagnosis: see a/p diagnoses Post-Operative Diagnosis: same Surgery / Procedure Performed: Spontaneous Vaginal Delivery Type of Anesthesia: Epidural Special Medications: none Estimated Blood Loss: 200 Fluids Replaced: crystalloid Findings Description of Procedure: Patient began pushing and delivered the head in the SHAWN presentation. The head was delivered atraumatically . The anterior and posterior shoulders delivered without complication followed by the rest of the infant and the infant was placed on the maternal abdomen. Delayed cord clamping was employed for approximately 60 seconds. Cord was clamped and cut and gentle traction was applied to the cord and the placenta delivered spontaneously immediately following it was noted to be intact with three-vessel cord. The perineum and vagina were inspected and noted to have no laceration. EBL was 200 cc. Patient and tolerated delivery well. Amniotic Fluid Description: Clear Placental Delivery Description: Spontaneous Placenta Disposition: [facility] Cord Vessel Description: 3 Vessels Cord Entanglement: None Delayed Cord Clamping: Yes Post Vaginal Delivery Medications Given After Delivery: IV Pitocin Episiotomy Description: None Complication Complications: None Procedures Urinary/Genital 52xxx-59xxx: 39790 Vaginal Delivery [facility]
--- NOTE | 2024-01-31 16:45 | DCINST_ITS ---
Discharge Instructions Diet Discharge Diet: No restrictions Activity Discharge Activity: Return to Normal Activity, May Not Drive (while taking narcotic pain medications.) and May Shower May resume sexual activity in: 4-6 weeks Dressing / Incision Call your doctor if your incision/area has: Continuous Slow Oozing, Sudden Increased Bleeding, Increased Pain/ Swelling, Increased Redness and Foul Smelling Discharge Follow Up Care Please Follow Up With: Samantha Romero MD When: Call [phone] to make an appointment with your doctor in 6 weeks. If you had elevated blood pressure or 4th degree laceration, you will need to be seen in 2 weeks. Test Results: Test results from this visit will be discussed in further detail at your follow- up appointment, if applicable. Discharge Plan Admission Admit Date/Time: 01/31/24 07:29 Attending Provider: Samantha Romero Primary Care Provider: Bre Maldonado Discharge Orders/Prescriptions Prescriptions: No Action sertraline 100 mg tablet 100 mg PO DAILY Qty: 90 2RF PNV-DHA 27 mg iron-1 mg -300 mg capsule 1 cap PO DAILY ondansetron 4 mg tablet,disintegrating 4 mg PO Q6H PRN (Reason: nausea and vomiting) Qty: 30 2RF Referrals / Follow Up: Bre Maldonado PA [Primary Care Provider] - Disposition Disposition (needs filled in before D/C Order can be placed): Home, Self Care
[2024-02-01 00:55] VITALS: BP 130/81; PULSE 98; RESP 16; TEMP 36.2; O2SAT 98
[2024-02-01 04:00] VITALS: BP 127/84; PULSE 76; RESP 16; TEMP 36.4; O2SAT 98
--- NOTE | 2024-02-01 05:23 | PCM.PN.OB ---
Subjective Subjective Patient doing well without complaints. Tolerating PO. Ambulating and voiding without difficulty. feeding well. Denies chest pain, shortness of breath, calf pain/swelling, fevers, chills, lightheadedness. Objective Data Objective Data Vital Signs: Vital Signs Temp Pulse Resp BP Pulse Ox O2 Del Method 97.6 F L 76 16 127/84 H 98 Room Air 02/01/24 04:00 02/01/24 04:00 02/01/24 04:00 02/01/24 04:00 02/01/24 04:00 02/01/24 04:00 Oxygen Delivery Method Room Air Weight: 245 lb 5.992 oz Body Mass Index (BMI) 43.4 Intake & Output: Intake and Output for Last 24 Hours 01/30/24 01/31/24 02/01/24 23:59 23:59 23:59 Intake Total 1425.00 / 1425.00 Output Total 1200 / 1200 Balance 225.00 / 225.00 Lab / Micro Data 01/31/24 08:00 Labs: Laboratory Results - last 24 hr 01/31/24 08:00: WBC 10.1, RBC 4.20, Hgb 10.8 L, Hct 34.0 L, MCV 81.0, MCH 25.7 L, MCHC 31.8 L, RDW Std Deviation 39.1, RDW Coeff of Janna 13.5, Plt Count 236, MPV 10.1, Immature Gran % (Auto) 0.700, Neut % (Auto) 72.7 H, Lymph % (Auto) 18.4 L, Armstrong % (Auto) 7.3, Eos % (Auto) 0.5, Baso % (Auto) 0.4, Absolute Neuts (auto) 7.4, Absolute Lymphs (auto) 1.86, Nucleated RBC % 0, Syphilis Total Ab Non-reactive, Blood Type O POSITIVE, Antibody Screen NEGATIVE ROS Constitutional Constitutional: Reports systems reviewed and no addt'l complaints, except as documented Cardiovascular Cardiovascular: Reports systems reviewed and no addt'l complaints, except as documented Respiratory/Chest Respiratory/Chest: Reports systems reviewed and no addt'l complaints, except as documented Gastrointestinal Gastrointestinal: Reports systems reviewed and no addt'l complaints, except as documented Physical Exam Const alert, oriented x3 and no apparent distress HEENT Head and Scalp: atraumatic Resp normal respiratory effort GI soft to palpation and non-tender Bimanual Exam - Vag & Uterus: uterus non-tender Uterus Palpation: uterus fundus firm (below Umbilicus) Assessment & Plan (1) Vaginal delivery: COMMENT: IOL ghtn sm 37 boy PLAN: Plan s/p PPD # 1 1. routine post delivery care 2. breast feeding- support given 3. rh positive 4. rubella immune
[2024-02-01 08:00] VITALS: BP 122/87; PULSE 102; RESP 16; TEMP 36.2; O2SAT 97
[2024-02-01] MEDS: Sertraline 100 MG Tablet PO (09:53)
--- NOTE | 2024-02-01 12:30 | CASEMGMT ---
Social Work Assessment Labor and Delivery Unit Patient Address: [address], [place] [address] Phone number: Date of Referral: 01/31/24 Time of Referral: 19:44 Referred By: Samantha Romero Date of Intervention: 02/01/2024 Time of Intervention: 12:30 Reason for Referral: Mental Health/Anxiety History obtained from: Medical records, mother of baby Perla Bhakta,(MOB) and father of baby Trace Moon ?PJ? (FOB), d.o.b 03/01/1977.? Household composition: MOB, FOB and their 3 children. Son, Mathew, age 3, daughter Socorro, 23 months and boy Cliff, born on 01/31/2024. Patient's parent/guardian status: MOB and FOB are engaged and have been together for 4 years. A wedding date has not yet been set. Both MOB and FOB are actively involved and will be providing care for baby. MOB denied any concerns with domestic violence and described a positive and supportive relationship with her . Medical History: KELSEA received routine care through [facility] beginning at 12 weeks and 6 days. KELSEA was induced at 37 weeks due to maternal hypertension and had a vaginal delivery. MOB has had 3 pregnancies and 3 births. MOB and FOB indicated neither are interested in any additional children at this time and the FOB is planning to get a vasectomy. Apgars: 9 and 9, birthweight: 2825 g. [facility]?s customer account representative was identified as Dr. Maldonado. Educational Status: MOB and FOB denied any issues or concerns with reading or writing. MOB reported having earned her High School diploma. Financial Status: MOB and FOB reported their income is sufficient to meet the needs of their family at this time. 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 MOB reported she doesn?t have a set maternity leave and can return to work whenever ready. MOB reported she doesn?t have to work but works to get out of the house and to socialize. FOB is currently employed part time flexible clerk as a [employer].? Infant Supplies: MOB and FOB reported they have all the supplies they need for baby at this time including but not limited to: Car Seat, bassinet, pack-n-play, crib, diapers, bottles and clothing. KELSEA also reported she has a breast pump. Childcare/Caregiver(s):? 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 Transportation:? KELSEA and ELY reported they are both licensed drivers and have a reliable vehicle to take baby to and from all medical appointments. No transportation issues identified. Programs/Agencies Involved: KELSEA is currently involved in counseling through [employer] in [place].? KELSEA reported she?s been involved in counseling for almost a year and described counseling as ?helpful?.? KELSEA reported that her therapist left abruptly and KELSEA is currently on a waiting list to get connected with a different counselor. KELSEA reported she has been involved with [facility] within the last 6 months however no longer qualifies for benefits. KELSEA reported she is currently under her mother?s health insurance and all of MOB and FORinku?s children are currently on the FOB?s insurance. KELSEA is aware of how to re-apply in the future if needed. KELSEA also reported that she used to get WIC. Children Services/Legal Issues:? Denied. 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 KELSEA reported she experienced PPD with previous 2 births and is able to recognize signs and symptoms and is able to seek help if/when ever needed. MOB reported she?s currently on medication which is working and keeping symptoms managed at this time. ELY also reported being on medication for anxiety which he, too, reported is being managed.? ELY is not involved in any counseling at this time. ???Substance Use History:? MOB and FOB denied any drug or alcohol abuse or prescription drug abuse. MOB denied drinking and the FOB reported drinking alcohol socially at times. Family History: MOB and FOB both denied any family history of mental health or drug or alcohol abuse.? Drug Screens: ?None obtained at the time of this admission. ? Family/Social Stressors: ?MOB and FOB denied any current family or social stressors. Support Systems: Ample.? KELSEA identified her biggest supports as the FOB as well as ?s maternal and paternal grandparents. Depression/Shaken Baby/Safe Sleeping: footwear factory worker provided verbal and written education on PPD, Safe Sleeping and Shaken Baby. Both MOB and FOB verbalized an understanding. ??? ASSESSMENT:? MOB and FOB provided consent to social work visit. Upon arrival, ?s MGM was sitting on the couch holding , FOB was nearby reclined in a hospital chair and MOB was in hospital bed. Positive interaction was observed between all adults in the room and all adults were actively engaged in the assessment.? At the end of the assessment, executive secretary social welfare requested to speak with the MOB alone which all were agreeable to. At that time, MOB held baby and was observed to be gentle and attentive with . MOB observed to re-swaddle in blanket.? MOB denied any previous or current concerns of domestic violence, unmanaged mental health or drug or alcohol abuse. MOB reported she felt safe in [facility] and denied any other needs or concerns at this time. Safe Plan of Care for related to substance use: N/A; not needed. ? PLAN:? Baby to be discharged home when ready.? footwear factory worker also provided written information on depression, depression resources and Help Me Grow as additional resources offered by executive secretary social welfare which MOB and FOB accepted. No other services requested or indicated. Dianne Pena, INDUSTRIAL MACHINE SYSTEM TECHNICIAN, REHABILITATION PROGRAM COORDINATOR
[2024-02-01 15:00] VITALS: BP 134/86; PULSE 84; RESP 16; TEMP 36.6
== END 2024-02-01 16:20 | disposition home or self-care (01) | DRG 807 ==
PROVIDERS: Registered Nurse; Admitting Provider Obstetrics & Gynecology; PCP Physician Assistant; Referring Provider Obstetrics & Gynecology; Visit Provider Obstetrics & Gynecology
DX: O13.4 Gestational [pregnancy-induced] hypertension without significant proteinuria, complicating childbirth (principal); Z37.0 Single live birth; O99.344 Other mental disorders complicating childbirth; F32.A Depression, unspecified; O99.214 Obesity complicating childbirth; F41.9 Anxiety disorder, unspecified; O99.824 Streptococcus B carrier state complicating childbirth; Z3A.37 37 weeks gestation of pregnancy; Z79.899 Other long term (current) drug therapy
CPT/HCPCS: 59025; 59050; 85025; 86780; 86850; 86900; 86901; J7120; J2405

== ENCOUNTER 2024-02-17 10:49 | Emergency (ER) | payer OTHER, SELFPAY ==
[2024-02-17 10:50] VITALS: BP 144/86; PULSE 84; RESP 18; TEMP 35.9; O2SAT 98
--- NOTE | 2024-02-17 11:21 | EDS_ITS ---
HPI History of Present Illness Chief Complaint: Hypertension Informant: patient Narrative Narrative: 23-year-old female is 2 weeks post spontaneous vaginal delivery, she has had headaches ever since and some blurry vision seems like is getting worse of the last several days, she is also having some lower abdominal pain that feels little worse and some nausea. She denies any swelling or confusion. She checked her blood pressure 2 days ago at home and it was 151/110. She was concerned and waited a while and rechecked it and it was 130s/90. She DrAshley MCMAHON this morning and was sent to the ER for this. Here in triage she is 144/86 but while I am evaluating her for her systolic blood pressure is 138. She states she was induced for -induced hypertension and had preeclampsia with a couple of her other pregnancies. She has had no seizures. [facility] Medical History Vaginal delivery depression Short interval between pregnancies affecting , antepartum Vaginal delivery Anxiety and depression Home Medications ?Medication ?Instructions ?Recorded ?Last Taken ?Type sertraline 100 mg tablet 100 mg PO DAILY depression #90 tabs 09/11/22 01/23/24 11:00 Rx 100 mg multivitamin no.47-iron fum 27 1 cap PO DAILY 07/12/23 01/30/24 History mg-folate no.1 1 mg-dha 300 mg capsule (PNV-DHA) ondansetron 4 mg disintegrating 4 mg PO Q6H PRN nausea and 08/13/23 01/30/24 Rx tablet vomiting #30 tabs nifedipine 30 mg tablet,extended 30 mg PO DAILY #30 tabs 02/17/24 Unknown Rx release 24 hr (Procardia XL) Allergy/AdvReac Type Severity Reaction Status Date / Time No Known Allergies Allergy Verified 02/17/24 10:50 Family History Grandfather Webbed fingers FOB -Paternal Surgical History No significant past surgical history Social History adopted: No household members: significant other and children housing: house number of children: 3 current occupational status: employed and unemployed current occupation: [employer] pets and animals: Yes pets and animals: dog(s) history of recent travel: No sexually active: Yes Smoking Status: Never smoker second hand exposure: No alcohol intake: never substance use type: does not use well-balanced diet: about half the time caffeine: Yes (Celcius- half of one) Type: other Number of servings: 1 eating out: 1-3 times/week during the past year weight has: remained stable what type of physical activity do you participate in: none amilcar/confucianism: None seatbelt use: always do you feel safe at home: Yes additional social history: Monique SARAH ROS ED Constitutional Constitutional ED: Denies chills or fever(s) Eyes Eyes: Reports change in vision; Denies diplopia ENT ENT ED: Denies rhinorrhea or sore throat Cardiovascular Cardiovascular: Denies chest pain, edema or palpitations Respiratory/Chest Respiratory/Chest: Denies cough or dyspnea Gastrointestinal Gastrointestinal: Reports abdominal pain and nausea; Denies diarrhea or vomiting Genitourinary Genitourinary ED: Denies dysuria or hematuria Musculoskeletal Musculoskeletal: Denies back pain or neck pain Integumentary Denies abscess or rash Neurologic Neurologic: Reports headache(s); Denies paresthesias or weakness Psychiatric Psychiatric: Denies anxiety or suicidal thoughts EXAM Physical Exam Const Vital Signs: 02/17/24 10:49 02/17/24 10:50 02/17/24 11:49 Temperature 96.7 F L Temperature Source Temporal Pulse Rate 84 100 Respiratory Rate 18 18 Respiratory Effort Normal Respiratory Pattern Normal Blood Pressure 144/86 H 113/56 L Blood Pressure Mean 105 75 Pulse Ox 98 98 Oxygen Delivery Method Room Air Room Air Positive well nourished and well developed General Appearance ED: well developed and NAD HEENT Reports moist mucous membranes normocephalic and atraumatic Eyes PERRL and EOMs intact bilaterally Neck full ROM and supple Resp normal respiratory effort and clear to auscultation bilaterally Cardio regular rate, regular rhythm and no murmurs GI non-tender and non-distended Auscultation: normoactive bowel sounds Palpation: soft Back/Spine no CVA tenderness General Back: other FROM Extremity normal to inspection General Extremety ED: Negative for edema, pulses abnormal or tenderness General Extremity: Negative for edema or pulses abnormal Neuro oriented x3, CN's II-XII intact bilaterally and no sensory deficits noted Sensorium / Orientation: awake and alert Motor Exam: strength 5/5 throughout Psych mental status grossly normal Skin no rashes or lesions noted and no wounds MDM MDM MDM Narrative Medical decision making narrative: Repeat blood pressure 113/56. Labs are noted, she does have proteinuria which is new for her, the rest of the labs are normal. Discussed with EXCHANGE ENGINEER Dr. Romero. Advises starting her on Procardia XL 30 mg once daily and having her follow-up with her PCP. We discussed reasons to return she is comfortable with that plan. Lab Data Attestation: I reviewed the patient's lab results. Labs: Laboratory Results - last 24 hr 02/17/24 02/17/24 11:30 11:44 WBC 5.4 RBC 4.45 Hgb 11.4 L Hct 36.4 L MCV 81.8 MCH 25.6 L MCHC 31.3 L RDW Std Deviation 39.0 RDW Coeff of Janna 13.2 Plt Count 285 MPV 10.5 Immature Gran % (Auto) 0.400 Neut % (Auto) 56.3 Lymph % (Auto) 34.9 [place] % (Auto) 6.1 Eos % (Auto) 1.7 Baso % (Auto) 0.6 Absolute Neuts (auto) 3.1 Absolute Lymphs (auto) 1.90 Nucleated RBC % 0 PT 14.0 INR 1.1 APTT 26.9 Sodium 141 Potassium 3.6 Chloride 108 H Carbon Dioxide 26.0 Anion Gap 7 BUN 12 Creatinine 0.80 Est GFR (MDRD) Af Amer 114 Est GFR (MDRD) Non-Af 94 BUN/Creatinine Ratio 14.9 Glucose 104 Uric Acid 5.0 Calcium 9.0 Magnesium 1.8 Total Bilirubin 0.20 AST 15 ALT 21 Alkaline Phosphatase 107 Lactate Dehydrogenase 189 Total Protein 6.6 Albumin 3.1 L Globulin 3.5 Albumin/Globulin Ratio 0.9 Urine Color Yellow Urine Clarity Sl. Cloudy Urine pH 6.0 Ur Specific [place] 1.020 Urine Protein 30 H Urine Glucose (UA) Normal Urine Ketones Negative Urine Occult Blood 25 H Urine Nitrite Negative Urine Bilirubin Negative Urine Urobilinogen Normal Ur Leukocyte Esterase 100 H Urine RBC 0-5 SEEN Urine WBC 0-5 SEEN Ur Squamous Epith Cells 0-5 SEEN Urine Bacteria 1+ Urine Mucus 1+ Management Discussion w/another healthcare provider: Fixture Fabricator Repairer (Gynecology Dr. Romero) Discharge Plan Triage Chief Complaint: Hypertension ED Provider: Rico Tracey Dx/Rx/DC Orders Clinical Impression: Episode of hypertension, Gestational hypertension with significant proteinuria, Instructions: Gestational Hypertension Prescriptions: New nifedipine [Procardia XL] 30 mg tablet extended release 24hr 30 mg PO DAILY Qty: 30 0RF No Action sertraline 100 mg tablet 100 mg PO DAILY Qty: 90 2RF PNV-DHA 27 mg iron-1 mg -300 mg capsule 1 cap PO DAILY ondansetron 4 mg tablet,disintegrating 4 mg PO Q6H PRN (Reason: nausea and vomiting) Qty: 30 2RF Primary Care Provider: Bre Maldonado Referrals: Samantha Romero MD [Med Staff - Active Staff] - 3-5 Days if not improving Bre Maldonado PA [Primary Care Provider] - As soon as possible Print Language: Liberian Disposition Disposition: Home, Self Care
[2024-02-17 11:44] LABS: Absolute Neutrophil Count 3.1 X10^3/uL (2.0-7.7); Basophil# 0.03 X10^3/uL; Basophil% 0.6 % (0-1); Eosinophil# 0.09 X10^3/uL; Eosinophils% 1.7 % (0-5); Hematocrit 36.4 % (37-47); Hemoglobin 11.4 g/dL (12.0-15.0); Lymphocyte % 34.9 % (19-41); Mean Corp Hgb Conc 31.3 g/dL (32-36); Mean Corpuscular Hgb 25.6 pg (27.0-32.0); Mean Corpuscular Volume 81.8 fL (81-99); Mean Platelet Vol. 10.5 fl (6.2-12.0); Monocyte# 0.33 X10^3/uL; Monocyte% 6.1 % (0-10); NRBC Flagged by Analyzer 0 % (0-5); Neutrophil # 3.07 X10^3/uL (2.7-7.7); Neutrophil % 56.3 % (47-70); Platelet Count 285 K/mm3 (150-450); RBC Distribution Width CV 13.2 % (11.6-14.6); Red Blood Count 4.45 M/mm3 (4.2-5.4); White Blood Count 5.4 K/mm3 (4.4-11.0)
[2024-02-17 11:49] VITALS: BP 113/56; PULSE 100; RESP 18; O2SAT 98
[2024-02-17 11:51] LABS: International Normalized Ratio 1.1
[2024-02-17 11:51] LABS: Color, Urine Yellow (Yellow); Glucose, Dipstick Normal (Normal); Ketone-Dipstick Negative (Negative); Leukocyte Esterase-Dipstick 100 /ul (Negative); Nitrite-Dipstick Negative (Negative); Occult Blood-Urine 25 /ul (Negative); Protein-Dipstick 30 mg/dl (Negative); Urine Bilirubin Dipstick Negative (Negative); Urine Clarity Sl. Cloudy (Clear); Urine Urobilinogen Normal (Normal)
[2024-02-17 11:53] LABS: Partial Thromboplast Time 26.9 Seconds (24.1-36.2)
[2024-02-17 11:58] LABS: ALB/GLOB Ratio 0.9 RATIO (0.9-2.4); AST(SGOT) 15 U/L (15-37); Alanine Aminotransfer ALT/SGPT 21 U/L (13-56); Albumin, Serum 3.1 g/dL (3.2-5.0); Alkaline Phosphatase 107 U/L (45-117); Anion Gap 7 (5-15); BUN 12 mg/dL (7-18); BUN/Creat Ratio 14.9 RATIO (10-20); Chloride 108 mmol/L (98-107); EST Glomerular Filtration Rate 94 mL/min (>60); Est Glom Filt Rate - Afr Amer 114 mL/min (>60); Globulin 3.5 g/dL (2.2-4.2); Glucose 104 mg/dL (74-106); LDH 189 U/L (84-246); Magnesium 1.8 mg/dL (1.6-2.6); Potassium 3.6 mmol/L (3.5-5.1); Protein, Total 6.6 g/dL (6.4-8.2); Sodium Level 141 mmol/L (136-145)
[2024-02-17 12:00] VITALS: BP 117/72; PULSE 80; RESP 20; O2SAT 98
[2024-02-17 12:06] LABS: Bacteria 1+ /hpf (None Seen); Mucous, Urine 1+ /hpf (<or=2+); Red Blood Cells-Urine 0-5 SEEN /hpf (0-5); Squamous Epithelial Cells - UA 0-5 SEEN /hpf (5-10); White Blood Cells 0-5 SEEN /hpf (0-5)
[2024-02-17 12:21] VITALS: BP 120/76; PULSE 76; RESP 18; TEMP 36.6; O2SAT 98
== END 2024-02-17 12:28 | disposition home or self-care (01) ==
PROVIDERS: Emergency Provider Emergency Medicine; PCP Physician Assistant; Visit Provider Emergency Medicine
DX: O14.95 Unspecified pre-eclampsia, complicating the puerperium (principal); O99.893 Other specified diseases and conditions complicating puerperium; R51.9 Headache, unspecified; Z79.899 Other long term (current) drug therapy; R10.9 Unspecified abdominal pain; R11.0 Nausea; Z3A.00 Weeks of gestation of pregnancy not specified
CPT/HCPCS: 80053; 81001; 83615; 83735; 84550; 85025; 85610; 85730; 99284

== ENCOUNTER → 2024-02-19 | Outpatient (CLI) | payer OTHER, SELFPAY ==
[2024-02-19 17:31] LABS: Absolute Lymphocyte Count 3.13 X10^3/uL (0.83-4.51); Absolute Neutrophil Count 3.8 X10^3/uL (2.0-7.7); Basophil# 0.05 X10^3/uL; Basophil% 0.7 % (0-1); Eosinophils% 1.3 % (0-5); Hematocrit 38.3 % (37-47); Lymphocyte # 3.13 X10^3/ul (0.83-4.51); Lymphocyte % 41.5 % (19-41); Mean Corp Hgb Conc 31.3 g/dL (32-36); Mean Corpuscular Hgb 25.4 pg (27.0-32.0); Mean Platelet Vol. 10.8 fl (6.2-12.0); Monocyte# 0.46 X10^3/uL; Monocyte% 6.1 % (0-10); NRBC Flagged by Analyzer 0 % (0-5); Neutrophil # 3.79 X10^3/uL (2.7-7.7); Neutrophil % 50.1 % (47-70); Platelet Count 346 K/mm3 (150-450); RBC Distribution Width CV 13.2 % (11.6-14.6); RBC Distribution Width SD 38.4 fl (35.1-43.9); Red Blood Count 4.73 M/mm3 (4.2-5.4); White Blood Count 7.6 K/mm3 (4.4-11.0)
[2024-02-19 18:21] LABS: ALB/GLOB Ratio 0.9 RATIO (0.9-2.4); AST(SGOT) 21 U/L (15-37); Alanine Aminotransfer ALT/SGPT 27 U/L (13-56); Albumin, Serum 3.4 g/dL (3.2-5.0); Alkaline Phosphatase 112 U/L (45-117); Anion Gap 5 (5-15); BUN 13 mg/dL (7-18); BUN/Creat Ratio 15.5 RATIO (10-20); Calcium,Total 9.1 mg/dL (8.5-10.1); Chloride 107 mmol/L (98-107); Creatinine, Serum 0.84 mg/dL (0.55-1.02); EST Glomerular Filtration Rate 90 mL/min (>60); Est Glom Filt Rate - Afr Amer 108 mL/min (>60); Globulin 3.7 g/dL (2.2-4.2); Glucose 93 mg/dL (74-106); Potassium 3.4 mmol/L (3.5-5.1); Protein, Total 7.1 g/dL (6.4-8.2); Sodium Level 139 mmol/L (136-145)
== END | disposition home or self-care (01) ==
LOC: LAB 16:06
PROVIDERS: PCP Physician Assistant; Referring Provider Obstetrics & Gynecology; Visit Provider Obstetrics & Gynecology
DX: I10 Essential (primary) hypertension (principal)
CPT/HCPCS: 36415; 80053; 85025